=== PATIENT | female | born 1945 | race African-American/Black ===

== ENCOUNTER 2016-02-21 16:30 | Emergency (ER) | payer OTHER ==
[~2016-02-21] VITALS: Ht 170.2 cm; Wt 49.9 kg
[~2016-02-21 16:30] MED LIST: AMBIEN5 MG ORAL; IBUPROFEN600 MG ORAL; LORAZEPAM1 MG ORAL; NORCO 5-325 TA1 EACH ORAL; NORCO1 EA ORAL; PENICILLIN V P500 MG PO; SEROQUEL200 MG ORAL
[2016-02-21] MEDS ORDERED: IBUPROFEN600 MG ORAL (17:57)
[2016-02-21 18:10] VITALS: BP 128/76
--- NOTE | 2016-02-21 23:00 | Emergency Room Report ---
History of Present Illness General Chief Complaint: Lower Extremity Injury Source: Patient Present Illness HPI The patient is a 70-year-old female presenting with left ankle pain which began 1 month prior after twisting the ankle. The patient was seen in the emergency department at that time and diagnosed with ankle sprain. X-rays were unremarkable for fracture or dislocation. The patient states that she is experiencing a 3/10 ache to the ankle. The patient states that she has been able to walk normally but with pain. The patient denies numbness or tingling of the extremity Allergies: Coded Allergies: No Known Allergies (Unverified , 09/04/12) Patient History Past Medical History: see triage record Pertinent Family History: none Reviewed Nursing Documentation: PMH: Agreed, PSxH: Agreed Nursing Documentation-PMH Past Medical History: No Stated History Hx Cardiac Problems: No - INSOMNIA, tinnitus Hx Cancer: No Hx Neurological Problems: No Review of Systems All Other Systems: negative except mentioned in HPI Physical Exam Vital Signs Date Time Temp Pulse Resp B/P Pulse Ox O2 Delivery O2 Flow Rate FiO2 02/21/16 16:23 98.4 82 16 128/76 100 Room Air Sp02 EP Interpretation: reviewed, normal General Appearance: no apparent distress, alert, GCS 15, non-toxic Head: normocephalic, atraumatic Eyes: bilateral eye PERRL, bilateral eye normal inspection ENT: hearing grossly normal, normal pharynx, no angioedema, normal voice Neck: full range of motion, supple/symm/no masses Respiratory: chest non-tender, lungs clear, normal breath sounds, speaking full sentences Cardiovascular #1: regular rate, rhythm, no edema Cardiovascular #2: 2+ carotid (R), 2+ carotid (L), 2+ radial (R), 2+ radial (L) , 2+ dorsalis pedis (R), 2+ dorsalis pedis (L) Gastrointestinal: normal bowel sounds, non tender, soft, non-distended, no guarding, no rebound Rectal: deferred Genitourinary: normal inspection, no CVA tenderness Musculoskeletal: back normal, digits/nails normal, gait/station normal, normal range of motion, tender - TTP over anterior ankle Neurologic: alert, oriented x3, responsive, motor strength/tone normal, sensory intact, speech normal Psychiatric: judgement/insight normal, memory normal, mood/affect normal, no suicidal/homicidal ideation Reflexes: 3+ bicep (R), 3+ bicep (L), 3+ tricep (R), 3+ tricep (L), 3+ knee (R) , 3+ knee (L) Skin: normal color, no rash, warm/dry, well hydrated Lymphatic: no adenopathy Procedures Splinting Splinting : Consent: Verbal Location: L Ankle Pre-Made Type: MISHA wrap Pre-Proc Neuro Vasc Exam: normal Post-Proc Neuro Vasc Exam: normal Patient Tolerated: Well Complications: None Medical Decision Making PA Attestation Dr. Calero is my supervising physician. Patient management was discussed with my supervising physician Diagnostic Impression: Primary Impression: Ankle sprain ER Course The patient is a 70-year-old female presenting with left ankle pain which began 1 month prior after twisting the ankle. Ddx considered include but not limited to sprain/strain, fracture, contusion PE: Vitals WNL. NAD. L ankle: No edema. Full AROM. SILT. Cap refill < 3 seconds. No obvious deformity. TTP over anterior ankle. Pt given motrin for pain. Xray of ankle unremarkable. Pt placed in MISHA wrap and will be DC'ed home with motrin. ER precautions given Other X-Ray Diagnostic Results Other X-Ray Diagnostic Results : X-Ray Ordered: L ankle Date: Feb 21, 2016 Findings: no fractures, no dislocation, no soft tissue swelling Number of Views: 3 PA Scribe Text I am acting as scribe for my supervising physician. My supervising physician's interpretation of the L ankle xrays are there are no fractures, dislocations or soft tissue swelling. Last Vital Signs Date Time Temp Pulse Resp B/P Pulse Ox O2 Delivery O2 Flow Rate FiO2 02/21/16 18:10 98.5 65 16 128/76 100 Room Air Status: improved Disposition: HOME, SELF-CARE Condition: Improved Scripts Ibuprofen* (MOTRIN*) 600 Mg Tablet 600 MG ORAL Q8H Y for For Pain, #30 TAB 0 Refills Prov: BERNIE JETER 02/21/16 Referrals: [facility]ERR[facility] (PCP) Patient Instructions: Ankle Sprain Additional Instructions: I discussed my findings with the patient. All questions and concerns have been answered. Treatment and medication compliance have been addressed. I advised the patient that they need to follow up with PMD in 3-5 days. Return to ED if pain remains or worsens, numbness or tingling occurs, new rash is noticed, fever is noticed, or if needed for any reason. Patient verbalized understanding of discharge instructions. BERNIE JETER Feb 21, 2016 23:00
--- NOTE | 2016-02-22 11:37 | Diagnostic Imaging Report ---
Indication: Pain Comparison: None Findings: 3 views of the left ankle obtained. No acute fracture, malalignment, periostitis, or osteochondral defects are identified. Soft tissues are unremarkable. Impression: No acute findings
[2016-02-28] MEDS ORDERED: TRAZODONE HCL150 MG ORAL (20:36)
== END 2016-02-21 18:11 | disposition home or self-care (01) ==
LOC: EDBD 16:30 → EMR 16:40
DX: S93.402A Sprain of unspecified ligament of left ankle, initial encounter (principal); G47.00 Insomnia, unspecified; X58.XXXA Exposure to other specified factors, initial encounter; Y92.9 Unspecified place or not applicable; Y99.8 Other external cause status
CPT/HCPCS: 99283

== ENCOUNTER 2016-02-26 15:03 | Emergency (ER) | payer OTHER ==
[~2016-02-26] VITALS: Ht 170.2 cm; Wt 44.5 kg
[2016-02-26 15:27] VITALS: BP 119/70
[2016-02-26] MEDS ORDERED: CORTISPORIN EAR10 ML LEFT EAR ×2 (15:43→15:46)
[2016-02-26 15:58] VITALS: BP 119/70
--- NOTE | 2016-02-26 17:53 | Emergency Room Report ---
History of Present Illness General Chief Complaint: Earache Source: Patient (BERNIE JETER) Present Illness HPI The patient is a 70-year-old female presenting with left ear ringing and pain. The patient was seen by her ENT one week prior and diagnosed with cerumen impaction. The patient was discharged with prescription for debrox and has been using Q-tips. The pt states the pain is a 5/10 dull ache and does not radiate. Pain worse with chewing. No F, chills, MEADOWS, dizziness, blurred vision, CP, SOB (BERNIE JETER.AElli) Allergies: Coded Allergies: No Known Allergies (Unverified , 09/04/12) Patient History Past Medical History: see triage record Pertinent Family History: none Now: No Reviewed Nursing Documentation: PMH: Agreed, PSxH: Agreed (BERNIE JETER) Nursing Documentation-PMH Hx Cardiac Problems: No - INSOMNIA, tinnitus Hx Cancer: No Hx Neurological Problems: No (BERNIE JETER P.AElli) Review of Systems All Other Systems: negative except mentioned in HPI (BERNIE JETER P.AElli) Physical Exam Vital Signs Date Time Temp Pulse Resp B/P Pulse Ox O2 Delivery O2 Flow Rate FiO2 02/26/16 15:16 97.7 84 15 119/70 98 Room Air Sp02 EP Interpretation: reviewed, normal General Appearance: no apparent distress, alert, GCS 15, non-toxic Head: normocephalic, atraumatic Eyes: bilateral eye PERRL, bilateral eye normal inspection ENT: hearing grossly normal, normal pharynx, no angioedema, normal voice, uvula midline, moist mucus membranes, other - L ear: white DC and TTP with pressure over tragus Neck: full range of motion, supple/symm/no masses Respiratory: chest non-tender, lungs clear, normal breath sounds, no wheezing, speaking full sentences Musculoskeletal: back normal, gait/station normal, normal range of motion, non- tender Neurologic: alert, oriented x3, responsive, motor strength/tone normal, sensory intact, speech normal Psychiatric: judgement/insight normal, memory normal, mood/affect normal, no suicidal/homicidal ideation Skin: normal color, no rash, warm/dry, well hydrated (BERNIE JETER.Osiris) Medical Decision Making PA Attestation Dr. Winter is my supervising physician. Patient management was discussed with my supervising physician (BERNIE JETER) Medicare Attestation The history of Bella Kaye has been reviewed and management options for her have been examined and discussed by Darren Winter. I have personally examined and interviewed the patient. (DARREN WINTER M.D.) Diagnostic Impression: Primary Impression: Otitis externa of left ear ER Course The patient is a 70-year-old female presenting with left ear ringing and pain. Differential diagnosis include but not limited to otitis externa, otitis media, mastoiditis, tinnitus, sinusitis, pharyngitis PE: Vitals WNL. NAD. L ear: white DC and TTP with pressure over tragus. Otherwise HEENT exam unremarkable The patient will be discharged home with a prescription for Cortisporin and will continue to take the other prescribed medications as directed by ENT. Pt has appt with ENT in one week. ER precautions given (BERNIE JETER) Last Vital Signs Date Time Temp Pulse Resp B/P Pulse Ox O2 Delivery O2 Flow Rate FiO2 02/26/16 15:58 97.7 89 15 119/70 98 Room Air Status: improved (BERNIE JETER) Disposition: HOME, SELF-CARE Condition: Improved Scripts Neomycin/Polymyxin B Sulf/Hc* (CORTISPORIN EAR SOLUTION*) 10 Ml Solution 4 DROP LEFT EAR QID, #10 ML 0 Refills Prov: BERNIE JETER 02/26/16 Referrals: JAVIER SPICER (PCP) Patient Instructions: Otitis Externa Additional Instructions: I discussed my findings with the patient. All questions and concerns have been answered. Treatment and medication compliance have been addressed. I advised the patient that they need to follow up with PMD in 3-5 days. Return to ED if symptoms worsen, new symptoms arise, or if needed for any reason. Patient verbalized understanding of discharge instructions. Please follow up with ENT doctor as discussed BERNIE JETER Feb 26, 2016 17:53 DARREN WINTER M.D. Feb 27, 2016 20:44
[2016-02-28] MEDS ORDERED: TRAZODONE HCL150 MG ORAL (20:36)
== END 2016-02-26 15:58 | disposition home or self-care (01) ==
LOC: EMR 15:51
DX: H60.92 Unspecified otitis externa, left ear (principal)
CPT/HCPCS: 99282

== ENCOUNTER 2016-02-28 20:41 | Emergency (ER) | payer OTHER ==
[~2016-02-28] VITALS: Ht 170.2 cm; Wt 47.6 kg
[~2016-02-28 20:41] MED LIST changes: +CORTISPORIN EAR10 ML LEFT EAR; +TRAZODONE HCL150 MG ORAL
[2016-02-28 20:51] VITALS: BP 132/88
--- NOTE | 2016-02-28 21:24 | Emergency Room Report ---
History of Present Illness General Chief Complaint: Earache Source: Patient, EMS Present Illness HPI This patient presents with left ear symptoms. She was seen here for tinnitus on . She was given Cortisporin drops and has been using them. She had wax build up before that time. She reports hearing a cricket or hearing tuning fork in the ear. There is some pain there the lasts several (5) hours but then gets better without taking medications. She's not been taking other medicines for this. Denies any fevers, sore throat, cough, nausea, vomiting, diarrhea, dizziness. The patient does take Seroquel and also a medicine to help her sleep. She's been seen here for weight loss and insomnia in past. Tinnitus was noted in the past also. She's seen an hearing aid consultant recently and had some prescription to help with the wax. Allergies: Coded Allergies: No Known Allergies (Unverified , 09/04/12) Patient History Past Medical History: see triage record, psych hx Social History: Denies: alcohol use, drug use, smoking Social History Narrative at [facility] Reviewed Nursing Documentation: PMH: Agreed, PSxH: Agreed Nursing Documentation-PMH Past Medical History: No Stated History Hx Cardiac Problems: No - INSOMNIA, tinnitus Hx Cancer: No Hx Neurological Problems: No Review of Systems Constitutional: Denies: chills, fever Eye: Denies: blurred vision ENT: Reports: see HPI Respiratory: Reports: see HPI Cardiovascular: Denies: chest pain Gastrointestinal: Reports: see HPI Musculoskeletal: Denies: back pain Skin: Denies: rash Psychiatric: Reports: prior hx Neurological: Reports: see HPI Physical Exam Vital Signs Date Time Temp Pulse Resp B/P Pulse Ox O2 Delivery O2 Flow Rate FiO2 02/28/16 20:34 98.1 79 16 128/86 99 02/28/16 20:51 Room Air Sp02 EP Interpretation: reviewed, normal General Appearance: well appearing, no apparent distress Head: normocephalic, atraumatic Eyes: bilateral eye PERRL, bilateral eye normal inspection ENT: normal pharynx, normal voice, other - fluid L ear. No pinna tenderness. Hard to see TM. R ear canal with wax Neck: full range of motion, supple Respiratory: no respiratory distress, speaking full sentences Cardiovascular #2: 2+ radial (L) Musculoskeletal: gait/station normal, normal range of motion Neurologic: alert, normal gait, grossly normal Psychiatric: mood/affect normal - slight flat affect and tend to focus on sy relating them to "hallucinations" Skin: no rash Medical Decision Making Diagnostic Impression: Primary Impression: Left otitis media Qualified Codes: H66.92 - Otitis media, unspecified, left ear Additional Impressions: Tinnitus Qualified Codes: H93.12 - Tinnitus, left ear Presumed schizoaffective disorder ER Course Tinnitis and pain in L ear. Using drops now. No fever. Will treat for otitis media as well as otitis externa. Slight tendency towards somatization. Patient stable for outpatient observation and treatment. Last Vital Signs Date Time Temp Pulse Resp B/P Pulse Ox O2 Delivery O2 Flow Rate FiO2 02/28/16 20:51 98.1 82 17 132/88 99 Room Air Status: unchanged Disposition: HOME, SELF-CARE Condition: Stable Scripts Ibuprofen* (MOTRIN*) 600 Mg Tablet 600 MG ORAL Q6H Y for For Pain, #14 TAB Prov: Tam Lopez M.D. 02/28/16 Chlorpheniramine Maleate (CHLORPHENIRAMINE MALEATE) 4 Mg Tablet 4 MG ORAL Q6HR Y for tinnitis/congestion, #10 TAB 0 Refills Prov: Tam Lopez M.D. 02/28/16 Ciprofloxacin Hcl* (CIPROFLOXACIN HCL*) 500 Mg Tablet 500 MG ORAL EVERY 12 HOURS, #14 TAB 0 Refills Prov: Tam Lopez M.D. 02/28/16 Tam Lopez M.D. Feb 28, 2016 21:24
[2016-02-28] MEDS ORDERED: IBUPROFEN600 MG ORAL (21:26)
[2016-02-28] MEDS ORDERED: CHLORPHENIRAMINE4 MG ORAL (21:26)
[2016-02-28] MEDS ORDERED: CIPROFLOXACIN500 M2 ORAL (21:26)
[2016-02-28 21:48] VITALS: BP 132/88
== END 2016-02-28 21:50 | disposition home or self-care (01) ==
LOC: EDBD 20:41 → EMR 21:21
DX: H66.92 Otitis media, unspecified, left ear (principal); H93.12 Tinnitus, left ear
CPT/HCPCS: 99284

== ENCOUNTER 2016-03-08 14:40 | Emergency (ER) | payer OTHER ==
[~2016-03-08] VITALS: Ht 177.8 cm; Wt 49.9 kg
[~2016-03-08 14:40] MED LIST changes: +CHLORPHENIRAMINE4 MG ORAL; +CIPROFLOXACIN500 M2 ORAL
[2016-03-08 14:47] VITALS: BP 156/92
[2016-03-08 15:25] LABS: BASOPHILS % (AUTO) 0.7 % (0.0-2.0); EOSINOPHILS % (AUTO) 0.1 % (0.0-3.0); LYMPHOCYTES % (AUTO) 42.8 % (20.0-45.0); MEAN CORPUSCULAR HEMOGLOBIN 34.4 PG (27.0-31.0); MEAN CORPUSCULAR VOLUME 101 FL (80-99); MEAN PLATELET VOLUME 7.4 FL (6.5-10.1); MONOCYTES % (AUTO) 8.7 % (1.0-10.0); NEUTROPHILS % (AUTO) 47.7 % (45.0-75.0); PLATELET COUNT 120 K/UL (150-450); RED BLOOD COUNT 4.06 M/UL (4.20-5.40); RED CELL DISTRIBUTION WIDTH 11.8 % (11.6-14.8); WHITE BLOOD COUNT 4.9 K/UL (4.8-10.8)
[2016-03-08 15:38] LABS: ALANINE AMINOTRANSFERASE 22 U/L (3-33); ALBUMIN/GLOBULIN RATIO 1.5 (1.0-2.7); ANION GAP 17 (5-15); ASPARTATE AMINO TRANSFERASE 27 U/L (5-40); CALCIUM 9.1 mg/dL (8.6-10.2); CARBON DIOXIDE 26 mEQ/L (20-30); CHLORIDE 98 mEQ/L (98-107); CREATININE 0.6 mg/dL (0.5-0.9); GLOMERULAR FILTRATION RATE > 60 mL/min (>60); HEMOLYSIS 35; POTASSIUM 3.9 mEQ/L (3.4-4.9); SODIUM 141 mEQ/L (135-145); TOTAL PROTEIN 7.1 g/dL (6.6-8.7)
[2016-03-08 16:18] VITALS: BP 141/80
[2016-03-08 16:20] VITALS: BP 156/92
--- NOTE | 2016-03-08 22:22 | Emergency Room Report ---
History of Present Illness General Chief Complaint: General Complaint Present Illness HPI The patient is a 70-year-old female presenting for weight loss. The patient states that she has lost 20 pounds in the last month. When asked, the patient does admit to eating less than usual. The patient states that she had a tomato for breakfast today and nothing else. The patient denies any other symptoms including pain, nausea, vomiting, diarrhea, constipation, night sweats, cough (BERNIE JETER P.A.) Allergies: Coded Allergies: No Known Allergies (Unverified , 09/04/12) Patient History Past Medical History: see triage record Pertinent Family History: none Reviewed Nursing Documentation: PMH: Agreed, PSxH: Agreed (BERNIE JETER P.A.) Nursing Documentation-PMH Hx Cardiac Problems: No - INSOMNIA, tinnitus Hx Cancer: No History Of Psychiatric Problem: Yes - SCHEZOPHERINIA Hx Neurological Problems: No (BERNIE JETER P.A.) Review of Systems All Other Systems: negative except mentioned in HPI (BERNIE JETER P.A.) Physical Exam Vital Signs Date Time Temp Pulse Resp B/P Pulse Ox O2 Delivery O2 Flow Rate FiO2 03/08/16 14:42 97.3 95 18 156/92 100 Room Air Sp02 EP Interpretation: reviewed, normal General Appearance: no apparent distress, alert, GCS 15, non-toxic Head: normocephalic, atraumatic Eyes: bilateral eye PERRL, bilateral eye normal inspection ENT: hearing grossly normal, normal pharynx, no angioedema, normal voice Neck: full range of motion, supple/symm/no masses Respiratory: chest non-tender, lungs clear, normal breath sounds, speaking full sentences Cardiovascular #1: regular rate, rhythm, no edema Cardiovascular #2: 2+ carotid (R), 2+ carotid (L), 2+ radial (R), 2+ radial (L) , 2+ dorsalis pedis (R), 2+ dorsalis pedis (L) Gastrointestinal: normal bowel sounds, non tender, soft, non-distended, no guarding, no rebound Rectal: deferred Genitourinary: normal inspection, no CVA tenderness Musculoskeletal: back normal, gait/station normal, normal range of motion, non- tender Neurologic: alert, oriented x3, responsive, motor strength/tone normal, sensory intact, speech normal Psychiatric: judgement/insight normal, memory normal, mood/affect normal, no suicidal/homicidal ideation Reflexes: 3+ bicep (R), 3+ bicep (L), 3+ tricep (R), 3+ tricep (L), 3+ knee (R) , 3+ knee (L) Skin: normal color, no rash, warm/dry, well hydrated Lymphatic: no adenopathy (BERNIE JETER) Medical Decision Making PA Attestation Dr. Winter is my supervising physician. Patient management was discussed with my supervising physician (BERNIE JETER) Medicare Attestation The history of Bella Kaye has been reviewed and management options for her have been examined and discussed by Darren Winter. I have personally examined and interviewed the patient. (DARREN WINTER M.D.) Diagnostic Impression: Primary Impression: Protein calorie malnutrition ER Course The patient is a 70-year-old female presenting for weight loss. Differential diagnoses considered: Malnutrition, gastroenteritis, depression PE: Vitals WNL. NAD. Abdomen: Normal appearance. Non distended. No ecchymosis. Normal BS. Non TTP. No McBurney point tenderness. No guarding. No CVA tenderness Labs: CBC and CMP both unremarkable. The patient was given IV fluids. The patient is given instructions to increase caloric intake. ER precautions are given and the patient will follow up with primary care doctor. Laboratory Tests Test 03/08/16 15:00 White Blood Count 4.9 K/UL (4.8-10.8) Red Blood Count 4.06 M/UL (4.20-5.40) L Hemoglobin 14.0 G/DL (12.0-16.0) Hematocrit 41.0 % (37.0-47.0) Mean Corpuscular Volume 101 FL (80-99) H Mean Corpuscular Hemoglobin 34.4 PG (27.0-31.0) H Mean Corpuscular Hemoglobin Concent 34.0 G/DL (32.0-36.0) Red Cell Distribution Width 11.8 % (11.6-14.8) Platelet Count 120 K/UL (150-450) L Mean Platelet Volume 7.4 FL (6.5-10.1) Neutrophils (%) (Auto) 47.7 % (45.0-75.0) Lymphocytes (%) (Auto) 42.8 % (20.0-45.0) Monocytes (%) (Auto) 8.7 % (1.0-10.0) Eosinophils (%) (Auto) 0.1 % (0.0-3.0) Basophils (%) (Auto) 0.7 % (0.0-2.0) Sodium Level 141 mEQ/L (135-145) Potassium Level 3.9 mEQ/L (3.4-4.9) Chloride Level 98 mEQ/L (98-107) Carbon Dioxide Level 26 mEQ/L (20-30) Anion Gap 17 (5-15) H Blood Urea Nitrogen 18 mg/dL (7-23) Creatinine 0.6 mg/dL (0.5-0.9) Estimate Glomerular Filtration Rate > 60 mL/min (>60) Glucose Level 102 mg/dL (74-106) Calcium Level 9.1 mg/dL (8.6-10.2) Total Bilirubin 0.2 mg/dL (0.0-1.2) Aspartate Amino Transferase (AST) 27 U/L (5-40) Alanine Aminotransferase (ALT) 22 U/L (3-33) Alkaline Phosphatase 42 U/L (35-104) Total Protein 7.1 g/dL (6.6-8.7) Albumin 4.3 g/dL (3.5-5.2) Globulin 2.8 g/dL Albumin/Globulin Ratio 1.5 (1.0-2.7) Lab Results Impression CBC and CMP are unremarkable (BERNIE JETER P.A.) Last Vital Signs Date Time Temp Pulse Resp B/P Pulse Ox O2 Delivery O2 Flow Rate FiO2 03/08/16 16:20 97.3 78 18 156/92 100 Room Air Status: improved (BERNIE JETER P.A.) Disposition: HOME, SELF-CARE Condition: Improved Referrals: JAVIER SPICER (PCP) Patient Instructions: Malnutrition Additional Instructions: I discussed my findings with the patient. All questions and concerns have been answered. Treatment and medication compliance have been addressed. I advised the patient that they need to follow up with PMD in 3-5 days. Return to ED if symptoms worsen, new symptoms arise, or if needed for any reason. Patient verbalized understanding of discharge instructions. BERNIE JETER Mar 08, 2016 22:22 DARREN WINTER M.D. Mar 15, 2016 07:08
== END 2016-03-08 16:21 | disposition home or self-care (01) ==
LOC: EDBD 14:40 → EMR 15:12
DX: E46 Unspecified protein-calorie malnutrition (principal); Z68.1 Body mass index [BMI] 19.9 or less, adult; G47.00 Insomnia, unspecified; F20.9 Schizophrenia, unspecified
CPT/HCPCS: 36415; 80053; 85025; 96374

== ENCOUNTER 2016-03-21 17:12 | Emergency (ER) | payer OTHER ==
[~2016-03-21] VITALS: Ht 170.2 cm; Wt 46.3 kg
[2016-03-21 18:00] VITALS: BP 132/67
[2016-03-21] MEDS ORDERED: BACITRACIN15 GM TOPIC (18:11)
[2016-03-21] MEDS ORDERED: HYDROCORTISON28.4 G5 TP (18:11)
[2016-03-21 18:15] VITALS: BP 132/67
--- NOTE | 2016-03-21 22:20 | Emergency Room Report ---
History of Present Illness General Chief Complaint: Pain Source: Patient Present Illness HPI The patient is a 70-year-old female presenting with bilateral lower leg itching. The patient states that she believes is due to insects. Patient has denied seeing any insects. The patient denies any pain and denies swelling. Pt denies itching to any other part of body. Pt denies N, V, F, chills, cough, SOB, CP Allergies: Coded Allergies: No Known Allergies (Unverified , 09/04/12) Patient History Past Medical History: see triage record Pertinent Family History: none Now: No Reviewed Nursing Documentation: PMH: Agreed, PSxH: Agreed Nursing Documentation-PMH Past Medical History: No History, Except For Hx Cardiac Problems: No - INSOMNIA, tinnitus Hx Cancer: No Hx Neurological Problems: No Review of Systems All Other Systems: negative except mentioned in HPI Physical Exam Vital Signs Date Time Temp Pulse Resp B/P Pulse Ox O2 Delivery O2 Flow Rate FiO2 03/21/16 17:34 97.9 89 16 132/67 98 Room Air Sp02 EP Interpretation: reviewed, normal General Appearance: no apparent distress, alert, GCS 15, non-toxic Head: normocephalic, atraumatic Eyes: bilateral eye PERRL, bilateral eye normal inspection Musculoskeletal: back normal, gait/station normal, normal range of motion, non- tender, no calf tenderness Neurologic: alert, oriented x3, responsive, motor strength/tone normal, sensory intact, normal gait, speech normal Psychiatric: judgement/insight normal, memory normal, mood/affect normal, no suicidal/homicidal ideation Skin: well hydrated, normal turgor, other - anterior lower legs 1cm circular erythematous macules with central punctate. No fluctuance. No DC, abrasions - excoriations to anterior bilat lower legs Lymphatic: no adenopathy Medical Decision Making PA Attestation Dr. Calero is my supervising physician. Patient management was discussed with my supervising physician Diagnostic Impression: Primary Impression: Insect bite ER Course The patient is a 70-year-old female presenting with bilateral lower leg itching. Ddx considered include but not limited to insect bite, contact dermatitis, eczema, cellulitis PE: vitals WNL. NAD bilat anterior lower legs 1cm circular erythematous macules with central punctate. No fluctuance. No DC. No burrowing. No other lesions of the skin. The patient be treated with 1% hydrocortisone cream and also bacitracin for the excoriations. The patient will this area clean and dry. ER precautions are given Last Vital Signs Date Time Temp Pulse Resp B/P Pulse Ox O2 Delivery O2 Flow Rate FiO2 03/21/16 17:34 97.9 89 16 132/67 98 Room Air Status: improved Disposition: HOME, SELF-CARE Condition: Improved Scripts Bacitracin (Bacitracin) 28.4 Gm Oint...g. 1 APPLIC TOPIC THREE TIMES A DAY, #28 GM Prov: BERNIE JETER 03/21/16 Hydrocortisone 1% cream (Hydrocortisone 1% cream) Y Cr 28.4 GM TP Q12HR, #28 GM Prov: BERNIE JETER 03/21/16 Referrals: [facility],REFERR[facility] (PCP) Patient Instructions: Insect Bite Additional Instructions: I discussed my findings with the patient. All questions and concerns have been answered. Treatment and medication compliance have been addressed. I advised the patient that they need to follow up with PMD in 3-5 days. Return to ED if symptoms worsen, new symptoms arise, or if needed for any reason. Patient verbalized understanding of discharge instructions. BERNIE JETER Mar 21, 2016 22:20
== END 2016-03-21 18:15 | disposition home or self-care (01) ==
LOC: EMR 18:11
DX: S80.862A Insect bite (nonvenomous), left lower leg, initial encounter (principal); S80.861A Insect bite (nonvenomous), right lower leg, initial encounter; W57.XXXA Bitten or stung by nonvenomous insect and other nonvenomous arthropods, initial encounter; Y92.9 Unspecified place or not applicable; G47.00 Insomnia, unspecified
CPT/HCPCS: 99284

== ENCOUNTER 2016-04-29 15:08 | Emergency (ER) | payer OTHER ==
[~2016-04-29] VITALS: Ht 170.2 cm; Wt 47.2 kg
[~2016-04-29 15:08] MED LIST changes: +BACITRACIN15 GM TOPIC; +HYDROCORTISON28.4 G5 TP
[2016-04-29 15:23] VITALS: BP 133/74
--- NOTE | 2016-04-29 16:07 | Emergency Room Report ---
History of Present Illness General Chief Complaint: General Complaint Source: Patient Present Illness HPI 70 y/o female c/o ringing in the left ear for 7 year. States she has been worked up for it by neurology and ENT and currently being managed by them. States for the past 4 days she had no tinnitus after having her left ear cerumen impaction removed until last night / this morning when it returned. Patient is asking if there is anything she can do at home to help with her ear ringing. Allergies: Coded Allergies: No Known Allergies (Unverified , 09/04/12) Patient History Pertinent Family History: none Now: No Reviewed Nursing Documentation: PMH: Agreed, PSxH: Agreed Nursing Documentation-PMH Past Medical History: No History, Except For Hx Cardiac Problems: No - INSOMNIA, tinnitus Hx Cancer: No Hx Neurological Problems: No Review of Systems All Other Systems: negative except mentioned in HPI Physical Exam Vital Signs Date Time Temp Pulse Resp B/P Pulse Ox O2 Delivery O2 Flow Rate FiO2 04/29/16 15:16 97.9 80 16 133/74 100 Room Air Sp02 EP Interpretation: reviewed, normal General Appearance: no apparent distress, alert, GCS 15, non-toxic Head: normocephalic, atraumatic Eyes: bilateral eye PERRL, bilateral eye normal inspection ENT: hearing grossly normal, normal pharynx, no angioedema, normal voice Neck: full range of motion, supple/symm/no masses Respiratory: chest non-tender, lungs clear, normal breath sounds, speaking full sentences Cardiovascular #1: regular rate, rhythm, no edema Neurologic: alert, oriented x3, responsive, motor strength/tone normal, sensory intact, speech normal Psychiatric: judgement/insight normal, memory normal, mood/affect normal, no suicidal/homicidal ideation Skin: normal color, no rash, warm/dry, well hydrated Lymphatic: no adenopathy Medical Decision Making PA Attestation Dr. Rendon is my supervising physician with whom patient management has been discussed with. Diagnostic Impression: Primary Impression: Tinnitus Qualified Codes: H93.12 - Tinnitus, left ear ER Course Pt. presents to the ED c/o tinnitus Ddx considered but are not limited to AOM, tinnitus, cerumen impaction, seasonal allergies Vital signs: are WNL, pt. is afebrile H&PE are most consistent with tinnitus ORDERS: none required at this time, the diagnosis is clinical ED INTERVENTIONS: none required at this time. DISCHARGE: At this time pt. is stable for d/c to home. Will provide printed patient care instructions, and any necessary prescriptions. Care plan and follow up instructions have been discussed with the patient prior to discharge. Last Vital Signs Date Time Temp Pulse Resp B/P Pulse Ox O2 Delivery O2 Flow Rate FiO2 04/29/16 15:23 97.9 80 16 133/74 100 Room Air Disposition: HOME, SELF-CARE Condition: Stable Scripts Meclizine Hcl* (MECLIZINE*) 25 Mg Tablet 25 MG ORAL THREE TIMES A DAY for 10 Days, #30 TAB Prov: DOMINIQUE MICHAEL 04/29/16 Acetic Acid (ACETIC ACID) 15 Ml Solution 3 DROP LEFT EAR FOUR TIMES A DAY for 10 Days, #1 UNIT Prov: DOMINIQUE MICHAEL 04/29/16 Patient Instructions: Tinnitus Additional Instructions: Tinnitus is often caused by damage to cells in a part of the inner ear. When these cells are damaged, they send signals to the brain that make you think you are hearing things that are not really there. The damage that leads to tinnitus can be caused by: Normal aging and hearing loss, Loud noise, Medicines, including some antibiotics, anti-seizure medicines, and painkillers, Head or neck injuries, or Certain diseases. The management of tinnitus involves treating any underlying disorders or abnormalities as well as addressing the tinnitus itself. Although there is no cure for most cases of chronic tinnitus, there are ways to manage the condition. The impact of tinnitus on everyday life varies, often depending upon the severity of the tinnitus noise. About 25 percent of sufferers report an increase in tinnitus severity over time. Long- term tinnitus is unlikely to go away completely. However, it often becomes less bothersome over time, especially when hearing loss is also present. DOMINIQUE MICHAEL Apr 29, 2016 16:07
[2016-04-29] MEDS ORDERED: ACETIC ACID15 ML LEFT EAR (16:09)
[2016-04-29] MEDS ORDERED: MECLIZINE HCL25 MG ORAL (16:09)
[2016-04-29 16:22] VITALS: BP 133/74
== END 2016-04-29 16:22 | disposition home or self-care (01) ==
LOC: EMR 15:55
DX: H93.12 Tinnitus, left ear (principal)
CPT/HCPCS: 99284

== ENCOUNTER 2016-05-01 19:53 | Emergency (ER) | payer OTHER ==
[~2016-05-01] VITALS: Ht 170.2 cm; Wt 46.7 kg
[~2016-05-01 19:53] MED LIST changes: +ACETIC ACID15 ML LEFT EAR; +MECLIZINE HCL25 MG ORAL
[2016-05-01 20:13] VITALS: BP 129/86
--- NOTE | 2016-05-01 20:36 | Emergency Room Report ---
History of Present Illness General Chief Complaint: General Complaint Source: Patient Present Illness HPI Patient is here for evaluation of forgetfulness for 4 months. Patient states that lately she has been creating things that she normally remembers. Examples of the patient sites are forgetting to staff members at [facility] and remembers only two jokes out of 4 that she normally tells. Patient states that she was here 2 days ago for tinnitus and was given treatment with acetic acid and antihistamine which the patient has taken with good compliance and resolving diverticulitis. 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 Denies any current n/v/f, ALOC, blurred vision, vision loss, floaters , neck pain, photophobia, phonophobia, numbness, paralysis, CP, SOB or headache. Allergies: Coded Allergies: No Known Allergies (Unverified , 09/04/12) Patient History Past Medical History: see triage record Pertinent Family History: none Now: No Reviewed Nursing Documentation: PMH: Agreed, PSxH: Agreed Nursing Documentation-PMH Past Medical History: No History, Except For Hx Cardiac Problems: No - INSOMNIA, tinnitus Hx Cancer: No Hx Neurological Problems: No Review of Systems All Other Systems: negative except mentioned in HPI Physical Exam Vital Signs Date Time Temp Pulse Resp B/P Pulse Ox O2 Delivery O2 Flow Rate FiO2 05/01/16 20:03 98.1 86 16 129/86 100 Room Air Sp02 EP Interpretation: reviewed, normal General Appearance: no apparent distress, alert, GCS 15, non-toxic Head: normocephalic, atraumatic Eyes: bilateral eye PERRL, bilateral eye normal inspection ENT: hearing grossly normal, normal pharynx, no angioedema, normal voice Neck: full range of motion, supple/symm/no masses Respiratory: chest non-tender, lungs clear, normal breath sounds, speaking full sentences Cardiovascular #1: regular rate, rhythm, no edema Cardiovascular #2: 2+ carotid (R), 2+ carotid (L), 2+ radial (R), 2+ radial (L) Musculoskeletal: back normal, gait/station normal, normal range of motion, non- tender Neurologic: alert, oriented x3, responsive, cigarette stamper III-XII nml as tested, motor strength/tone normal, DTRs symmetric, sensory intact, cerebellar normal, normal gait, speech normal, no Babinski, no pronator, other - MMSE score 30 Psychiatric: judgement/insight normal, memory normal, mood/affect normal, no suicidal/homicidal ideation, no delusions Skin: normal color, no rash, warm/dry, well hydrated Lymphatic: no adenopathy Medical Decision Making PA Attestation Dr. Calero is my supervising physician with whom patient management has been discussed with. Diagnostic Impression: Primary Impression: Forgetfulness ER Course Pt. presents to the ED c/o evaluation of possible Alzheimer / dementia evaluation. Ddx considered but are not limited to Alz/Dementia, CVA, forgetfulness, ALOC Vital signs: are WNL, pt. is afebrile H&PE are most consistent with Forgetfulness with normal MMSE (score of 30) ORDERS: none required at this time, the diagnosis is clinical ED INTERVENTIONS: none required at this time. DISCHARGE: At this time pt. is stable for d/c to home. Advised to follow up for further workup with PCP. Will provide printed patient care instructions, and any necessary prescriptions. Care plan and follow up instructions have been discussed with the patient prior to discharge. Last Vital Signs Date Time Temp Pulse Resp B/P Pulse Ox O2 Delivery O2 Flow Rate FiO2 05/01/16 20:13 98.1 84 16 129/86 100 Room Air Status: unchanged Disposition: HOME, SELF-CARE Condition: Stable Referrals: [facility]ERR[facility] (PCP) Patient Instructions: Alzheimer Disease Additional Instructions: Patient advised to follow up with PCP for further evaluation of symptoms. Advised patient to go to ER if patient experiences new or severe headache, temperature greater than 100.4F (38C), seeing double or having trouble seeing clearly, trouble speaking or hearing, weakness in an arm or leg, an inability to walk without assistance, passing out, numbness or tingling, chest pain, or vomiting that will not stop. DOMINIQUE MICHAEL May 01, 2016 20:35
[2016-05-01 20:49] VITALS: BP 129/86
== END 2016-05-01 20:49 | disposition home or self-care (01) ==
LOC: EMR 20:25
DX: R41.3 Other amnesia (principal); G47.00 Insomnia, unspecified; K57.90 Diverticulosis of intestine, part unspecified, without perforation or abscess without bleeding
CPT/HCPCS: 99282

== ENCOUNTER 2016-05-08 18:04 | Emergency (ER) | payer OTHER ==
[~2016-05-08] VITALS: Ht 170.2 cm; Wt 46.7 kg
[2016-05-08 18:38] VITALS: BP 110/65
--- NOTE | 2016-05-08 19:09 | Emergency Room Report ---
History of Present Illness General Chief Complaint: General Complaint Source: Patient Present Illness HPI 71 YO Female presents to the ED c/o Continued in ability to put on weight despite following food recommendations from previous ED visit for malnutrition. Pt reports continued intermittent tinnitus as well, states she was evaluated by ENT and they told her that it is because of age, and there is nothing that can be done. Pt denies imbalance, dizziness, changes in hearing, Patient denies night sweats, nausea, vomiting, abdominal pain, hematuria, dysuria, frequency, fevers or chills. She denies recent head trauma or fall. She denies history of neoplastic disease. Patient states that she was recommended to eat cupcakes and rice at previous ED visits to increase caloric intake. Patient states she does not like cupcakes and states his sugar makes her tinnitus worse , pt is requesting alternative diet suggestions. pt. reports intermittent back aches, denies pain at this time. Denies CP, Palpitations, LOC, AMS, dizziness, Changes in Vision, Sensation, paresthesias, or a sudden severe headache. Allergies: Coded Allergies: No Known Allergies (Unverified , 09/04/12) Patient History Past Medical History: see triage record Past Surgical History: none Pertinent Family History: none Now: No Immunizations: UTD Reviewed Nursing Documentation: PMH: Agreed, PSxH: Agreed Nursing Documentation-PMH Hx Cardiac Problems: No - INSOMNIA, tinnitus Hx Cancer: No Hx Neurological Problems: No Review of Systems All Other Systems: negative except mentioned in HPI Physical Exam Vital Signs Date Time Temp Pulse Resp B/P Pulse Ox O2 Delivery O2 Flow Rate FiO2 05/08/16 18:17 97.5 83 14 108/62 100 Room Air Sp02 EP Interpretation: reviewed, normal General Appearance: no apparent distress, alert, GCS 15, non-toxic, thin Head: normocephalic, atraumatic Eyes: bilateral eye PERRL, bilateral eye normal inspection ENT: hearing grossly normal, normal pharynx, no angioedema, normal voice, TMs + canals normal Neck: full range of motion, no meningismus, no bony tend, supple/symm/no masses Respiratory: lungs clear, normal breath sounds, speaking full sentences Cardiovascular #1: regular rate, rhythm, no edema Gastrointestinal: normal bowel sounds, non tender, soft, non-distended, no guarding, no rebound Rectal: deferred Genitourinary: normal inspection, no CVA tenderness Musculoskeletal: back normal, gait/station normal, normal range of motion, non- tender Neurologic: alert, oriented x3, responsive, motor strength/tone normal, sensory intact, cerebellar normal, normal gait, speech normal, other - negative godoy's, equal waste and batting waste chopper strength Psychiatric: judgement/insight normal, memory normal, mood/affect normal, no suicidal/homicidal ideation Skin: normal color, no rash, warm/dry, well hydrated Medical Decision Making PA Attestation is my supervising Physician whom patient management has been discussed with. Diagnostic Impression: Primary Impression: Malnutrition Additional Impression: chronic tinnitus ER Course Pt. presents to the ED c/o Continued in ability to put on weight despite following food recommendations from previous ED visit for malnutrition. Pt reports continued intermittent tinnitus as well, states she was evaluated multiple times by ENT specialist and they told her that it is because of age, and there is nothing that can be done. -Pt requests alternative diet recommendations. Ddx considered but are not limited to Malnutrition, malignancy, non-compliance with follow up, GE, malabsorption * I have reviewed this patients previous ED visits she frequented the ED twice this month with same cc, and consistently each month prior. previous laboratory work-ups were unremarkable. Vital signs: are WNL, pt. is afebrile H&PE are most consistent with need for increased caloric intake, no evidence of dehydration or failure to thrive, pt. is alert, and NAD. no constitutional symptoms to suggest malignancy or warrant imaging at this time. ORDERS: none required at this time, the diagnosis is clinical ED INTERVENTIONS: None required at this time. -d/w pt. proper follow up with Jewel Staker, and her PCP, also recommended continued follow up for her tinnitus with ENT specialist with any change in her ear symptoms. -D/W pt that I will give her Rx for Ensure to be consumed TID. I do not suspect an emergent condition at this time. with current presentation pt. is stable for close outpatient follow up. d/w pt that her previous ED evaluations for malnutrition where limited, and that it is very important to follow up with her PCP and a Jewel Staker for more in depth evaluations. - Pt. also given list of free/reduced cost health clinics for follow up in case her PCP is not easily available. DISCHARGE: At this time pt. is stable for d/c to home. Will provide printed patient care instructions, and any necessary prescriptions. Care plan and follow up instructions have been discussed with the patient prior to discharge. Last Vital Signs Date Time Temp Pulse Resp B/P Pulse Ox O2 Delivery O2 Flow Rate FiO2 05/08/16 18:38 97.9 78 16 110/65 98 Room Air Disposition: HOME, SELF-CARE Condition: Stable Scripts Lactose-Reduced Food (Ensure Active Muscle Health) 237 Ml Liquid 237 ML PO TID for 30 Days, ML Prov: Aydee Michele 05/08/16 Referrals: [facility],REFERR[facility] (PCP) Patient Instructions: Heart-Healthy Eating Plan, [id number], Malnutrition Additional Instructions: Take medications as directed. Follow up with PCP in 3-5 days Follow up with Jewel Staker Follow up with ENT Specialist Return sooner to ED if new symptoms occur, or current symptoms become worse. - Please note that this Emergency Department Report was dictated using [email or web address] making technician technology software, occasionally this can lead to erroneous entry secondary to interpretation by the dictation equipment. Aydee Michele May 08, 2016 19:09
[2016-05-08] MEDS ORDERED: ENSURE ACTIVE237 M1 PO (19:11)
[2016-05-08 19:27] VITALS: BP 110/65
== END 2016-05-08 19:29 | disposition home or self-care (01) ==
LOC: EMR 18:58
DX: E46 Unspecified protein-calorie malnutrition (principal); H93.19 Tinnitus, unspecified ear; M54.9 Dorsalgia, unspecified; G47.00 Insomnia, unspecified
CPT/HCPCS: 99283

== ENCOUNTER 2017-01-06 10:47 | Emergency (ER) | payer MEDICARE, MEDICAID ==
[~2017-01-06] VITALS: Ht 170.2 cm; Wt 48.1 kg
[~2017-01-06 10:47] MED LIST changes: +ENSURE ACTIVE237 M1 PO
[2017-01-06] MEDS ORDERED: TRIAMCINOLONE A15 GM TP (11:05)
[2017-01-06] MEDS ORDERED: KENALOG 0.025%15 GM APPLIC (11:31)
[2017-01-06] MEDS ORDERED: PERMETHRIN60 GM TOPIC (11:31)
[2017-01-06 11:36] VITALS: BP 120/72
[2017-01-06 11:54] VITALS: BP 120/72
--- NOTE | 2017-01-07 14:24 | Emergency Room Report ---
History of Present Illness General Chief Complaint: General Complaint Source: Patient Present Illness HPI Patient is a 71-year-old female presented after increased rash. Patient was noted to have increased itching areas to her the wrist as well as her neck and the upper extremity. The patient presented used some 100% cream with some relief. Patient reports having some insect bites which occurred at home. The patient denies recent travel. She had not been having any fever. She denies any pain. She had not been having any diarrhea or bloody stool. She denied weight loss. Allergies: Coded Allergies: No Known Allergies (Unverified , 09/04/12) Patient History Past Medical History: see triage record Last Menstrual Period: Post Reviewed Nursing Documentation: PMH: Agreed, PSxH: Agreed Nursing Documentation-PMH Hx Cardiac Problems: No - INSOMNIA, tinnitus Hx Asthma: Yes Hx Cancer: No Hx Neurological Problems: No Review of Systems All Other Systems: negative except mentioned in HPI Physical Exam Vital Signs Date Time Temp Pulse Resp B/P (MAP) Pulse Ox O2 Delivery O2 Flow Rate FiO2 01/06/17 10:56 98.2 75 17 120/72 98 Room Air General Appearance: well appearing, no apparent distress, GCS 15, thin, Chronically Ill Head: normocephalic, atraumatic ENT: hearing grossly normal, normal voice Neck: full range of motion, supple Respiratory: no respiratory distress, speaking full sentences Musculoskeletal: no calf tenderness Neurologic: normal inspection, alert, oriented x3, responsive, normal gait Psychiatric: mood/affect normal Skin: other - papular rash to extremities Medical Decision Making Diagnostic Impression: Primary Impression: Insect bite ER Course Patient presented for skin rash. Differential diagnosis included was not limited to insect bite, Camarena-Freddie syndrome, urticaria, erythema multiforme , contact dermatitis. Patient's benign exam and does not appear to require any further imaging or laboratory testing at this time. Patient's benign exam and does not appear to require any further imaging or laboratory testing at this time. The patient appears have insect bites. She is was given prescription for permethrin cream as well as hydrocortisone cream. The patient was advised to followup with primary care physician for reexamination. Patient is advised to return if she began having worsening rash high fever or or other concerns. Last Vital Signs Date Time Temp Pulse Resp B/P (MAP) Pulse Ox O2 Delivery O2 Flow Rate FiO2 01/06/17 11:54 98.2 17 120/72 98 Room Air 01/06/17 10:56 75 Status: improved Disposition: HOME, SELF-CARE Condition: Stable Scripts Permethrin* (ELIMITE*) 60 Gm Cream..g. 1 APPLIC TOPIC ONCE, #1 TUBE 0 Refills Apply cream from head to toe; leave on for 8-14 hours before washing off with water Prov: Virgil Calero 01/06/17 Triamcinolone Acet (Triamcinolone Acetonide) 15 Gm Cream..g. 15 GM APPLIC DAILY, #15 GM Prov: Virgil Calero 01/06/17 Referrals: NON PHYSICIAN (PCP) Patient Instructions: Insect Bite Virgil Calero Jan 07, 2017 14:24
== END 2017-01-06 11:57 | disposition home or self-care (01) ==
LOC: EMR 11:30
DX: S60.869A Insect bite (nonvenomous) of unspecified wrist, initial encounter (principal); S10.96XA Insect bite of unspecified part of neck, initial encounter; W57.XXXA Bitten or stung by nonvenomous insect and other nonvenomous arthropods, initial encounter; Y92.9 Unspecified place or not applicable; R21 Rash and other nonspecific skin eruption; J45.909 Unspecified asthma, uncomplicated
CPT/HCPCS: 99284

== ENCOUNTER 2017-01-08 15:15 | Emergency (ER) | payer MEDICARE, MEDICAID ==
[~2017-01-08] VITALS: Ht 170.2 cm; Wt 48.1 kg
[~2017-01-08 15:15] MED LIST changes: +KENALOG 0.025%15 GM APPLIC; +PERMETHRIN60 GM TOPIC; +TRIAMCINOLONE A15 GM TP
[2017-01-08] MEDS ORDERED: MECLIZINE HCL12.5 MG ORAL (15:45)
[2017-01-08 16:05] VITALS: BP 110/63
--- NOTE | 2017-01-08 21:38 | Emergency Room Report ---
History of Present Illness General Chief Complaint: General Complaint Present Illness HPI 71-year-old female presents to the emergency department complaining of his a noise in the left ear times one day. Patient states that she was evaluated by ENT specialist yesterday she was not having a problem at the time. Patient does have a history of tinnitus and has been evaluated by neurology as well as several ENT specialist. Patient states that the ENT specialist that she saw yesterday recommended that she may need a hearing aid to cancel out the hissing noise that she keeps hearing. Patient also presents with her recent tearing examination showing diagnosis of sensorial hearing loss. She denies pain at this time she denies dizziness, recent trauma or fall or changes in vision. Denies ear tenderness, d/c or q-tip use. Patient denies nausea, vomiting. Denies CP, Palpitations, LOC, AMS, dizziness, Changes in Vision, Sensation, paresthesias, or a sudden severe headache. (Aydee Michele P.A.) Allergies: Coded Allergies: No Known Allergies (Unverified , 09/04/12) Patient History Past Medical History: see triage record Past Surgical History: none Pertinent Family History: none Reviewed Nursing Documentation: PMH: Agreed, PSxH: Agreed (Aydee Michele P.A.) Nursing Documentation-PMH Hx Cardiac Problems: No - INSOMNIA, tinnitus Hx Asthma: Yes Hx Cancer: No Hx Neurological Problems: No (Aydee Michele P.A.) Review of Systems All Other Systems: negative except mentioned in HPI (Aydee Michele P.A.) Physical Exam Vital Signs Date Time Temp Pulse Resp B/P (MAP) Pulse Ox O2 Delivery O2 Flow Rate FiO2 01/08/17 15:22 97.5 75 20 111/68 99 Room Air Sp02 EP Interpretation: reviewed, normal General Appearance: no apparent distress, alert, GCS 15, non-toxic Head: normocephalic, atraumatic Eyes: bilateral eye normal inspection, bilateral eye PERRL, bilateral eye EOMI ENT: hearing grossly normal, normal pharynx, no angioedema, normal voice, TMs + canals normal, uvula midline, moist mucus membranes Neck: full range of motion, no meningismus, no bony tend, supple/symm/no masses Respiratory: lungs clear, normal breath sounds, speaking full sentences Cardiovascular #1: regular rate, rhythm Musculoskeletal: back normal, gait/station normal, normal range of motion, non- tender Neurologic: alert, oriented x3, responsive, motor strength/tone normal, sensory intact, normal gait, speech normal, no pronator, other - no facial droop , equal freelance makeup artist strength, EOMI's Skin: normal color, no rash, warm/dry, well hydrated Lymphatic: no adenopathy (Aydee Michele) Medical Decision Making [place] Attestation Dr. castillo is my supervising Physician whom patient management has been discussed with. (Aydee Michele) Medicare Attestation The history of Bella Kaye has been reviewed and management options for her have been examined and discussed by Darren Winetr. I have personally examined and interviewed the patient. (DARREN WINTER M.D.) Diagnostic Impression: Primary Impression: Tinnitus Qualified Codes: H93.12 - Tinnitus, left ear ER Course 71-year-old female presents to the emergency department complaining of his a noise in the left ear times one day. Patient states that she was evaluated by ENT specialist yesterday she was not having a problem at the time. Patient does have a history of tinnitus and has been evaluated by neurology as well as several ENT specialist. Patient states that the ENT specialist that she saw yesterday recommended that she may need a hearing aid to cancel out the hissing noise that she keeps hearing. Patient also presents with her recent tearing examination showing diagnosis of sensorial hearing loss. She denies pain at this time she denies dizziness, recent trauma or fall or changes in vision. Denies ear tenderness, d/c or q-tip use. Patient denies nausea, vomiting. Denies CP, Palpitations, LOC, AMS, dizziness, Changes in Vision, Sensation, paresthesias, or a sudden severe headache. Ddx considered but are not limited to auditory nerve damage, infection, neurological dysfunction/ mass, menineres/BPPV just to name a few. Vital signs: are WNL, pt. is afebrile H&PE are most consistent with Chronic intermittent tinnitus, no focal neurological deficits, previous normal evaluations by neurologist. ORDERS: none required at this time, the diagnosis is clinical ED INTERVENTIONS: None required at this time. -Pt. given reassurance that there is not an acute emergent condition at this time. that she will be treated conservatively and that she needs to follow up with ENT specialist. DISCHARGE: At this time pt. is stable for d/c to home. Will provide printed patient care instructions, and any necessary prescriptions. Care plan and follow up instructions have been discussed with the patient prior to discharge. (Aydee Michele) Last Vital Signs Date Time Temp Pulse Resp B/P (MAP) Pulse Ox O2 Delivery O2 Flow Rate FiO2 01/08/17 16:05 97.5 90 16 110/63 96 Room Air (Aydee Michele) Disposition: HOME, SELF-CARE Condition: Stable Scripts Meclizine Hcl* (MECLIZINE*) 12.5 Mg Tablet 12.5 MG ORAL THREE TIMES A DAY, #15 TAB Prov: Aydee Michele 01/08/17 Referrals: NON PHYSICIAN (PCP) Patient Instructions: Tinnitus Additional Instructions: Take medications as directed. Follow up with your ENT Specialist in 3-5 days, even if your symptoms have resolved. Return sooner to ED if new symptoms occur, or current symptoms become worse. Do not drink alcohol, drive, or operate heavy machinery while taking Meclizine as this may cause drowsiness. - Please note that this Emergency Department Report was dictated using [employer] Cateringtelemetry nurse technology software, occasionally this can lead to erroneous entry secondary to interpretation by the dictation equipment. Aydee Michele Jan 08, 2017 21:38 DARREN WINTER M.D. Jan 09, 2017 14:16
== END 2017-01-08 16:05 | disposition home or self-care (01) ==
LOC: EMR 15:57
DX: H93.12 Tinnitus, left ear (principal); J45.909 Unspecified asthma, uncomplicated
CPT/HCPCS: 99283

== ENCOUNTER 2017-02-16 12:07 | Emergency (ER) | payer MEDICARE, MEDICAID ==
[~2017-02-16] VITALS: Ht 170.2 cm; Wt 68.0 kg
[~2017-02-16 12:07] MED LIST changes: +MECLIZINE HCL12.5 MG ORAL
[2017-02-16 12:08] VITALS: BP 137/79
[2017-02-16] MEDS ORDERED: Norco 5mg/325mg tab ORAL ONE (12:30)
[2017-02-16] MEDS ORDERED: NORCO 5-325 TA1 EAC1 ORAL (13:54)
[2017-02-16] MEDS ORDERED: MULTIVITAMINS1 EAC2 ORAL (13:54)
[2017-02-16 14:35] VITALS: BP 137/79
--- NOTE | 2017-02-16 23:48 | Emergency Room Report ---
History of Present Illness General Chief Complaint: Back Pain-No Injury Source: Patient, Medical Record, EMS Present Illness HPI The patient is a 71-year-old female with a history of chronic back pain presenting for back pain. This began this morning described as a 9/10 dull ache. She denies any injury that may have caused the pain. Pain does not radiate. 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 She denies any incontinence or other symptoms including fever, chills, abdominal pain Allergies: Coded Allergies: No Known Allergies (Unverified , 09/04/12) Patient History Past Medical History: see triage record Pertinent Family History: none Reviewed Nursing Documentation: PMH: Agreed, PSxH: Agreed Nursing Documentation-PMH Past Medical History: No Stated History Hx Cardiac Problems: No - INSOMNIA, tinnitus Hx Asthma: Yes Hx Cancer: No Hx Neurological Problems: No Review of Systems All Other Systems: negative except mentioned in HPI Physical Exam Vital Signs Date Time Temp Pulse Resp B/P (MAP) Pulse Ox O2 Delivery O2 Flow Rate FiO2 02/16/17 11:54 98.1 94 16 139/81 100 Room Air Sp02 EP Interpretation: reviewed, normal General Appearance: no apparent distress, alert, GCS 15, non-toxic Head: normocephalic, atraumatic Eyes: bilateral eye normal inspection, bilateral eye PERRL ENT: hearing grossly normal, normal pharynx, no angioedema, normal voice Respiratory: chest non-tender, lungs clear, normal breath sounds, speaking full sentences Gastrointestinal: normal bowel sounds, non tender, soft, non-distended, no guarding, no rebound Musculoskeletal: tender - bilat lumbar paraspinal muscles Neurologic: alert, oriented x3, responsive, motor strength/tone normal, sensory intact, speech normal Psychiatric: judgement/insight normal, memory normal, mood/affect normal, no suicidal/homicidal ideation Skin: normal color, no rash, warm/dry, well hydrated Medical Decision Making PA Attestation Dr. Montiel is my supervising physician. Patient management was discussed with my supervising physician Diagnostic Impression: Primary Impression: Back pain Qualified Codes: M54.5 - Low back pain ER Course The patient is a 71-year-old female with a history of chronic back pain presenting for back pain Ddx considered include but not limited to lumbar strain, degenerative disease, epidural abscess, cauda equina syndrome, chronic pain, narcotic dependency. PE: Afebrile. No apparent distress Lungs are clear to auscultation bilaterally Abdomen soft and nontender There is trace to palpation to the lateral lumbar paraspinal muscles. No midline tenderness or step-offs. The patient will be discharged with prescription for pain medication. ER precautions are given Last Vital Signs Date Time Temp Pulse Resp B/P (MAP) Pulse Ox O2 Delivery O2 Flow Rate FiO2 02/16/17 14:35 98.0 75 16 137/79 100 Room Air Status: improved Disposition: HOME, SELF-CARE Condition: Improved Scripts Hydrocodone Bit/Acetaminophen 5-325* (NORCO 5-325 TABLET*) 1 Each Tablet 1 TAB ORAL Q6HR Y for For Pain, #10 TAB Prov: BERNIE JETER 02/16/17 Multivitamins* (MULTIVITAMINS*) 1 Each Tablet 1 TAB ORAL DAILY, #30 TAB 0 Refills Prov: BERNIE JETER 02/16/17 Referrals: [facility],REFERRING (PCP) Patient Instructions: Back Pain, Adult Additional Instructions: I discussed my findings with the patient. All questions and concerns have been answered. Treatment and medication compliance have been addressed. I advised the patient that they need to follow up with PMD in 3-5 days. Return to ED if symptoms worsen, new symptoms arise, or if needed for any reason. Patient verbalized understanding of discharge instructions. BERNIE JETER Feb 16, 2017 23:48
== END 2017-02-16 14:35 | disposition home or self-care (01) ==
LOC: EDBD 12:07 → EMR 12:35
DX: M54.9 Dorsalgia, unspecified (principal); G89.29 Other chronic pain; J45.909 Unspecified asthma, uncomplicated
CPT/HCPCS: 99284

== ENCOUNTER 2017-07-07 16:55 | Emergency (ER) | payer MEDICARE, MEDICAID ==
[~2017-07-07] VITALS: Ht 170.2 cm; Wt 45.4 kg
[~2017-07-07 16:55] MED LIST changes: +MULTIVITAMINS1 EAC2 ORAL; +NORCO 5-325 TA1 EAC1 ORAL
[2017-07-07 17:12] VITALS: BP 113/69
[2017-07-07] MEDS ORDERED: Hydrocortisone 2.5% Oint 30gm TOPIC PRN (18:00)
--- NOTE | 2017-07-07 18:07 | Emergency Room Report ---
History of Present Illness General Chief Complaint: General Complaint Source: Patient, Medical Record (Aydee Michele) Present Illness HPI 72 YO Female presents to the ED c/o many bug bites that are associated with Itching, localized swelling, and erythema of posterior neck , ankle and calves. Denies lesions/rashes elsewhere on the body. Denies open wounds or bleeding. Denies pain. Denies new medications or body washes or creams. Denies swelling of the lips, tongue , throat or airway. Denies wheezing, or shortness of breath. Denies recent travel, recent illness or ill contacts. denies blisters, oral lesions, or sloughing of the skin. (Aydee Michele) Allergies: Coded Allergies: No Known Allergies (Unverified , 09/04/12) Patient History Past Medical History: see triage record Past Surgical History: none Pertinent Family History: none Reviewed Nursing Documentation: PMH: Agreed; PSxH: Agreed (Aydee Michele) Nursing Documentation-PMH Past Medical History: No History, Except For Hx Cardiac Problems: No - INSOMNIA, tinnitus Hx Asthma: Yes Hx Cancer: No Hx Neurological Problems: No (Aydee Michele) Review of Systems All Other Systems: negative except mentioned in HPI (Aydee Michele) Physical Exam Vital Signs Date Time Temp Pulse Resp B/P (MAP) Pulse Ox O2 Delivery O2 Flow Rate FiO2 07/07/17 17:09 98.1 78 16 113/69 96 Room Air 98.1 Sp02 EP Interpretation: reviewed, normal General Appearance: no apparent distress, alert, GCS 15, non-toxic Head: normocephalic, atraumatic Eyes: bilateral eye normal inspection, bilateral eye PERRL ENT: hearing grossly normal, no angioedema, normal voice Neck: full range of motion Respiratory: chest non-tender, lungs clear, normal breath sounds, no wheezing, speaking full sentences Cardiovascular #1: regular rate, rhythm Musculoskeletal: back normal, gait/station normal, normal range of motion, non- tender Neurologic: alert, oriented x3, responsive, motor strength/tone normal, sensory intact, speech normal, grossly normal Psychiatric: judgement/insight normal Skin: normal color, no rash, warm/dry, well hydrated, other - multiple insect bites on the nape of the neck, bilateral ankles and calves x 3 days. excoriations noted, no erythema, crusting, d/c, blisters or vesicles. Lymphatic: no adenopathy (Aydee Michele) Medical Decision Making PA Attestation Dr. castillo is my supervising Physician whom patient management has been discussed with. (Aydee Michele) Medicare Attestation The history of Bella Kaye has been reviewed and management options for her have been examined and discussed by Darren Winter. I have personally examined and interviewed the patient. (Darren Winter MD) Diagnostic Impression: Primary Impression: Bed bug bite Qualified Codes: W57.XXXA - Bitten or stung by nonvenomous insect and other nonvenomous arthropods, initial encounter Additional Impression: Insect bites Qualified Codes: W57.XXXA - Bitten or stung by nonvenomous insect and other nonvenomous arthropods, initial encounter ER Course 72 YO Female presents to the ED c/o many bug bites that are associated with Itching, localized swelling, and erythema of posterior neck , ankle and calves. Denies lesions/rashes elsewhere on the body. Denies open wounds or bleeding. Denies pain. Denies new medications or body washes or creams. Denies swelling of the lips, tongue , throat or airway. Denies wheezing, or shortness of breath. Denies recent travel, recent illness or ill contacts. denies blisters, oral lesions, or sloughing of the skin. Ddx considered but are not limited to cellulitis, scabies, insect bites, tic bites, spider bites, contact dermatitis, Drug reaction, allergic reaction, fungal infection, lice. Vital signs: are WNL, pt. is afebrile H&PE are most consistent with multiple insect bites on the nape of the neck, bilateral ankles and calves - no evidence of drug reaction, or impending anaphylaxis/ airway compromise ORDERS: none required at this time, the diagnosis is clinical ED INTERVENTIONS: -Hydrocortisone cream DISCHARGE: At this time pt. is stable for d/c to home. Will provide printed patient care instructions, and any necessary prescriptions. Care plan and follow up instructions have been discussed with the patient prior to discharge. (Aydee Michele) Last Vital Signs Date Time Temp Pulse Resp B/P (MAP) Pulse Ox O2 Delivery O2 Flow Rate FiO2 07/07/17 17:12 98.1 74 16 113/69 96 Room Air 98.1 (Aydee Michele) Disposition: HOME, SELF-CARE Condition: Stable Scripts Permethrin* (ELIMITE*) 60 Gm Cream..g. 1 APPLIC TOPIC ONCE, #60 GM 0 Refills Apply cream from head to toe; leave on for 8-14 hours before washing off with water; may reapply in 1 week if live mites appear. Prov: Aydee Michele 07/07/17 Bacitracin/Polymyxin B Sulfate (BACITRACIN-POLYMYXIN OINTMENT) 28.35 Gm Oint...g. 1 APPLIC TP BID, #28.3 GM Prov: Aydee Michele 07/07/17 Diphenhydramine Hcl (BENADRYL ALLERGY) 25 Mg Tablet 25 MG PO Q6HR, #20 TAB Prov: Aydee Michele 07/07/17 Patient Instructions: Insect Bite Additional Instructions: Take medications as directed. Follow up with a Primary Care Provider in 3-5 days, even if your symptoms have resolved. --Please review list of primary care clinics, if you do not already have a primary care provider Return sooner to ED if new symptoms occur, or current symptoms become worse. Do not drink alcohol, drive, or operate heavy machinery while taking Benadryl as this may cause drowsiness. - Please note that this Emergency Department Report was dictated using [employer] peripheral equipment operator technology software, occasionally this can lead to erroneous entry secondary to interpretation by the dictation equipment. Aydee Michele July 07, 2017 18:07 Darren Winter MD July 09, 2017 06:39
[2017-07-07] MEDS ORDERED: BENADRYL ALLERG25 M1 PO (18:09)
[2017-07-07] MEDS ORDERED: BACITRACIN-P28.35 GM TP (18:09)
[2017-07-07] MEDS ORDERED: PERMETHRIN60 GM TOPIC (18:09)
[2017-07-07] MEDS ORDERED: Hydrocortisone 2.5% Oint 30gm TOPIC ONE (18:30)
[2017-07-07 18:43] VITALS: BP 113/69
[2017-07-07] MEDS ORDERED: Tetanus/Diptheria/Pertussis Vaccine 0.5ml Syr IM ONE (18:45)
== END 2017-07-07 18:43 | disposition home or self-care (01) ==
LOC: EMR 17:25
DX: S10.86XA Insect bite of other specified part of neck, initial encounter (principal); S90.562A Insect bite (nonvenomous), left ankle, initial encounter; S90.561A Insect bite (nonvenomous), right ankle, initial encounter; S80.862A Insect bite (nonvenomous), left lower leg, initial encounter; S80.861A Insect bite (nonvenomous), right lower leg, initial encounter; W57.XXXA Bitten or stung by nonvenomous insect and other nonvenomous arthropods, initial encounter; Y92.9 Unspecified place or not applicable; Z23 Encounter for immunization; J45.909 Unspecified asthma, uncomplicated; G47.00 Insomnia, unspecified
CPT/HCPCS: 90471; 90715; 96372; 99284

== ENCOUNTER 2017-07-16 15:09 | Emergency (ER) | payer MEDICARE, MEDICAID ==
[~2017-07-16] VITALS: Ht 170.2 cm; Wt 54.0 kg
[~2017-07-16 15:09] MED LIST changes: +BACITRACIN-P28.35 GM TP; +BENADRYL ALLERG25 M1 PO
--- NOTE | 2017-07-16 15:53 | Emergency Room Report ---
History of Present Illness General Chief Complaint: Animal Bite Source: Patient Present Illness HPI 72 YO Female presents to the ED c/O multiple Insect bites primarily on the right upper extremity few on the left upper extremity. Patient was seen here previously for similar symptoms on her back those have resolved however these newer symptoms have appeared over the course of the last 4-5 days. She denies fevers, chills, recent travel. Denies new medications or body washes or creams. Denies swelling of the lips, tongue , throat or airway. Denies wheezing, or shortness of breath. Denies recent travel, recent illness or ill contacts. denies blisters, oral lesions, or sloughing of the skin. Allergies: Coded Allergies: No Known Allergies (Unverified , 09/04/12) Patient History Past Medical History: see triage record Past Surgical History: none Pertinent Family History: none Reviewed Nursing Documentation: PMH: Agreed; PSxH: Agreed Nursing Documentation-PMH Past Medical History: No History, Except For Hx Cardiac Problems: No - INSOMNIA, tinnitus Hx Asthma: Yes Hx Cancer: No Hx Neurological Problems: No Review of Systems All Other Systems: negative except mentioned in HPI Physical Exam Vital Signs Date Time Temp Pulse Resp B/P (MAP) Pulse Ox O2 Delivery O2 Flow Rate FiO2 07/16/17 15:34 98.1 81 14 111/62 96 Room Air 98.1 Sp02 EP Interpretation: reviewed, normal General Appearance: no apparent distress, alert, GCS 15, non-toxic Head: normocephalic, atraumatic ENT: hearing grossly normal, normal voice, other - no swelling of the lips or tongue Neck: full range of motion Respiratory: lungs clear, normal breath sounds, no wheezing, speaking full sentences Cardiovascular #1: regular rate, rhythm, normal capillary refill Musculoskeletal: back normal, gait/station normal, normal range of motion, non- tender Neurologic: alert, oriented x3, responsive, motor strength/tone normal, sensory intact, normal gait, speech normal, grossly normal Psychiatric: judgement/insight normal Skin: normal color, warm/dry, well hydrated, other - multiple discrete insect bites with localized reaction/ induration, mild erythema, no crusting, vesicles or blisters. on the bilateral UE's Lymphatic: no adenopathy Medical Decision Making PA Attestation Dr. castillo is my supervising Physician whom patient management has been discussed with. Diagnostic Impression: Primary Impression: Insect bite Qualified Codes: W57.XXXA - Bitten or stung by nonvenomous insect and other nonvenomous arthropods, initial encounter ER Course 72 YO Female presents to the ED c/O multiple Insect bites primarily on the right upper extremity few on the left upper extremity. Patient was seen here previously for similar symptoms on her back those have resolved however these newer symptoms have appeared over the course of the last 4-5 days. She denies fevers, chills, recent travel. Denies new medications or body washes or creams. Denies swelling of the lips, tongue , throat or airway. Denies wheezing, or shortness of breath. Denies recent travel, recent illness or ill contacts. denies blisters, oral lesions, or sloughing of the skin. Ddx considered but are not limited to cellulitis, scabies, insect bites, tic bites, spider bites, contact dermatitis, Drug reaction, allergic reaction, fungal infection, lice. Vital signs: are WNL, pt. is afebrile H&PE are most consistent with multiple discrete insect bites with localized reaction/ induration, mild erythema, no crusting, vesicles or blisters. ORDERS: none required at this time, the diagnosis is clinical ED INTERVENTIONS: None required at this time. DISCHARGE: At this time pt. is stable for d/c to home. Will provide printed patient care instructions, and any necessary prescriptions. Care plan and follow up instructions have been discussed with the patient prior to discharge. Last Vital Signs Date Time Temp Pulse Resp B/P (MAP) Pulse Ox O2 Delivery O2 Flow Rate FiO2 07/16/17 15:34 98.1 81 14 111/62 96 Room Air 98.1 Disposition: HOME, SELF-CARE Condition: Stable Scripts Hydrocortisone (Hydrocortisone Cream 2.5%) Y Cream.appl 1 APPLIC TP BID, #28.3 GM Prov: Aydee Michele P.A. 07/16/17 Diphenhydramine Hcl (BENADRYL ALLERGY) 25 Mg Tablet 25 MG PO Q6HR, #20 TAB Prov: Aydee Michele P.A. 07/16/17 Permethrin* (ELIMITE*) 60 Gm Cream..g. 1 APPLIC TOPIC ONCE, #60 GM 0 Refills Apply cream from head to toe; leave on for 8-14 hours before washing off with water; may reapply in 1 week if live mites appear. Prov: Aydee Michele 07/16/17 Patient Instructions: Bedbugs, [id number], Insect Bite, [id number] Additional Instructions: Take medications as directed. Follow up with a Primary Care Provider in 3-5 days, even if your symptoms have resolved. --Please review list of primary care clinics, if you do not already have a primary care provider Return sooner to ED if new symptoms occur, or current symptoms become worse. Do not drink alcohol, drive, or operate heavy machinery while taking Benadryl as this may cause drowsiness. - Please note that this Emergency Department Report was dictated using [employer] Solutionsdistance education teacher technology software, occasionally this can lead to erroneous entry secondary to interpretation by the dictation equipment. Aydee Michele Jul 16, 2017 15:53
[2017-07-16] MEDS ORDERED: BENADRYL ALLERG25 M1 PO (15:55)
[2017-07-16] MEDS ORDERED: HYDROCORTISONE30 G2 TP (15:55)
[2017-07-16] MEDS ORDERED: PERMETHRIN60 GM TOPIC (15:55)
[2017-07-16 16:01] VITALS: BP 111/62
[2017-07-16] MEDS ORDERED: Hydrocortisone 2.5% Oint 30gm TOPIC PRN (16:30)
== END 2017-07-16 16:50 | disposition home or self-care (01) ==
LOC: EMR 16:06
DX: S40.862A Insect bite (nonvenomous) of left upper arm, initial encounter (principal); S40.861A Insect bite (nonvenomous) of right upper arm, initial encounter; W57.XXXA Bitten or stung by nonvenomous insect and other nonvenomous arthropods, initial encounter; Y92.9 Unspecified place or not applicable
CPT/HCPCS: 99283

== ENCOUNTER 2017-09-03 08:23 | Emergency (ER) | payer MEDICARE, MEDICAID ==
[~2017-09-03] VITALS: Ht 170.2 cm; Wt 47.6 kg
[~2017-09-03 08:23] MED LIST changes: +HYDROCORTISONE30 G2 TP
[2017-09-03 08:37] VITALS: BP 144/78
[2017-09-03 09:24] LABS: BASOPHILS % (AUTO) 0.7 % (0.0-2.0); EOSINOPHILS % (AUTO) 0.4 % (0.0-3.0); HEMATOCRIT 40.7 % (37.0-47.0); HEMOGLOBIN 13.9 G/DL (12.0-16.0); LYMPHOCYTES % (AUTO) 34.5 % (20.0-45.0); MEAN CORPUSCULAR VOLUME 94 FL (80-99); MONOCYTES % (AUTO) 7.2 % (1.0-10.0); NEUTROPHILS % (AUTO) 57.2 % (45.0-75.0); PLATELET COUNT 161 K/UL (150-450); RED BLOOD COUNT 4.35 M/UL (4.20-5.40); RED CELL DISTRIBUTION WIDTH 11.2 % (11.6-14.8); WHITE BLOOD COUNT 5.3 K/UL (4.8-10.8)
[2017-09-03 09:24] LABS: APPEARANCE,URINE CLEAR; BILIRUBIN, URINE NEGATIVE (NEGATIVE); GLUCOSE, URINE (UA) NEGATIVE (NEGATIVE); KETONES,URINE NEGATIVE (NEGATIVE); LEUKOCYTE ESTERASE ,URINE NEGATIVE (NEGATIVE); NITRITE,URINE NEGATIVE (NEGATIVE); PH,URINE 5 (4.5-8.0); PROTEIN,URINE NEGATIVE (NEGATIVE); UROBILINOGEN,URINE NORMAL MG/DL (0.0-1.0)
[2017-09-03 09:30] LABS: ANION GAP 7 mmol/L (5-15); BLOOD UREA NITROGEN 11 mg/dL (7-18); CALCIUM 8.9 MG/DL (8.5-10.1); CARBON DIOXIDE 29 MMOL/L (21-32); CHLORIDE 105 MMOL/L (98-107); CREATININE 0.7 MG/DL (0.55-1.30); POTASSIUM 3.3 MMOL/L (3.5-5.1); SODIUM 141 MMOL/L (136-145)
[2017-09-03 09:30] LABS: COLOR,URINE YELLOW
[2017-09-03 09:36] LABS: ALANINE AMINOTRANSFERASE 25 U/L (12-78); ALBUMIN/GLOBULIN RATIO 1.1 (1.0-2.7); ALKALINE PHOSPHATASE 47 U/L (46-116); ASPARTATE AMINO TRANSFERASE 19 U/L (15-37); BILIRUBIN,TOTAL 0.4 MG/DL (0.2-1.0)
--- NOTE | 2017-09-03 10:04 | Diagnostic Imaging Report ---
History: AMS Exam: CT HEAD Without Contrast Technique more: CTDI is 70.38 mGy and DLP is 1422 mGy-cm. Technique more: One or more of the following dose reduction techniques were used: automated exposure control, adjustment of the mA and/or kV according to patient size, use of iterative reconstruction technique. Comparison: 07/26/2009 FINDINGS: No intracranial hemorrhage, mass effect or CT evidence of acute infarct. The ventricles are within limits and midline. The visualized paranasal sinuses, mastoids and orbits are within limits. IMPRESSION: No intracranial hemorrhage, mass effect or CT evidence of acute infarct.
--- NOTE | 2017-09-03 10:38 | Emergency Room Report ---
History of Present Illness General Chief Complaint: General Complaint Source: Patient Present Illness HPI This patient states that she is worried that she is developing dementia. She states that her mother has a history of dementia. She is concerned because of multiple issues. She states that twice this year she is accidentally left the stove on. She states that the fire department has had to come to her home. She states that she also got lost walking one day. Today she states she almost forgot to put on her underwear. She does have a medical social worker. She lives alone. She has no other complaints. She otherwise is well. She denies weakness. She denies tingling or numbness. She denies recent illness. She has no other complaints. Allergies: Coded Allergies: No Known Allergies (Unverified , 09/04/12) Patient History Past Medical History: see triage record, asthma, psych hx Social History: Denies: smoking, alcohol use, drug use Last Menstrual Period: NA Now: No Reviewed Nursing Documentation: PMH: Agreed; PSxH: Agreed Nursing Documentation-PMH Past Medical History: No History, Except For Hx Cardiac Problems: No - INSOMNIA, tinnitus Hx Asthma: Yes Hx Cancer: No Hx Neurological Problems: No Review of Systems All Other Systems: negative except mentioned in HPI Physical Exam Vital Signs Date Time Temp Pulse Resp B/P (MAP) Pulse Ox O2 Delivery O2 Flow Rate FiO2 09/03/17 08:31 98.3 84 18 144/78 95 Room Air 98.2 Sp02 EP Interpretation: reviewed, normal General Appearance: no apparent distress, alert, GCS 15, non-toxic Head: normocephalic, atraumatic Eyes: bilateral eye normal inspection, bilateral eye PERRL ENT: hearing grossly normal, normal pharynx, no angioedema, normal voice Neck: full range of motion, supple/symm/no masses Respiratory: chest non-tender, lungs clear, normal breath sounds, no respiratory distress, no retraction, no accessory muscle use, speaking full sentences Cardiovascular #1: regular rate, rhythm, no edema Gastrointestinal: normal bowel sounds, non tender, soft, non-distended, no guarding, no rebound Rectal: deferred Musculoskeletal: back normal, gait/station normal, normal range of motion, non- tender Neurologic: alert, oriented x3, responsive, motor strength/tone normal, sensory intact, speech normal Psychiatric: judgement/insight normal, memory normal, mood/affect normal, no suicidal/homicidal ideation Skin: normal color, no rash, warm/dry, well hydrated Medical Decision Making Diagnostic Impression: Primary Impression: Dementia ER Course This patient does have a history consistent with early dementia. Patient does live alone. She is articulate and able to care for her self overall. She is well dressed and organized. Further discussion with the patient, and she states that she is very concerned that she could be developing dementia given her family history. She states that she does have a medical social worker that she will contact as soon as possible. She states that she will discuss assisted living with the medical social worker. She states that she had been considering this previously. Overall, the patient's workup today is benign. CT of the head shows no acute findings. Laboratory workup is also benign. The patient has a plan and is articulate and organized. I feel that there is no imminent danger to her. She was given return precautions and follow-up instructions. Laboratory Tests Test 09/03/17 08:17 09/03/17 08:55 Urine Color Yellow Urine Appearance Clear Urine pH 5 (4.5-8.0) Urine Specific [place] 1.020 (1.005-1.035) Urine Protein Negative (NEGATIVE) Urine Glucose (UA) Negative (NEGATIVE) Urine Ketones Negative (NEGATIVE) Urine Occult Blood Negative (NEGATIVE) Urine Nitrite Negative (NEGATIVE) Urine Bilirubin Negative (NEGATIVE) Urine Urobilinogen Normal MG/DL (0.0-1.0) Urine Leukocyte Esterase Negative (NEGATIVE) White Blood Count 5.3 K/UL (4.8-10.8) Red Blood Count 4.35 M/UL (4.20-5.40) Hemoglobin 13.9 G/DL (12.0-16.0) Hematocrit 40.7 % (37.0-47.0) Mean Corpuscular Volume 94 FL (80-99) Mean Corpuscular Hemoglobin 32.0 PG (27.0-31.0) H Mean Corpuscular Hemoglobin Concent 34.2 G/DL (32.0-36.0) Red Cell Distribution Width 11.2 % (11.6-14.8) L Platelet Count 161 K/UL (150-450) Mean Platelet Volume 6.2 FL (6.5-10.1) L Neutrophils (%) (Auto) 57.2 % (45.0-75.0) Lymphocytes (%) (Auto) 34.5 % (20.0-45.0) Monocytes (%) (Auto) 7.2 % (1.0-10.0) Eosinophils (%) (Auto) 0.4 % (0.0-3.0) Basophils (%) (Auto) 0.7 % (0.0-2.0) Prothrombin Time 10.7 SEC (9.30-11.50) Prothrombin Time INR 1.0 (0.9-1.1) PTT 27 SEC (23-33) Sodium Level 141 MMOL/L (136-145) Potassium Level 3.3 MMOL/L (3.5-5.1) L Chloride Level 105 MMOL/L (98-107) Carbon Dioxide Level 29 MMOL/L (21-32) Anion Gap 7 mmol/L (5-15) Blood Urea Nitrogen 11 mg/dL (7-18) Creatinine 0.7 MG/DL (0.55-1.30) Estimate Glomerular Filtration Rate mL/min (>60) Glucose Level 99 MG/DL (74-106) Calcium Level 8.9 MG/DL (8.5-10.1) Total Bilirubin 0.4 MG/DL (0.2-1.0) Aspartate Amino Transferase (AST) 19 U/L (15-37) Alanine Aminotransferase (ALT) 25 U/L (12-78) Alkaline Phosphatase 47 U/L (46-116) Troponin I 0.000 ng/mL (0.000-0.056) Total Protein 7.5 G/DL (6.4-8.2) Albumin 4.0 G/DL (3.4-5.0) Globulin 3.5 g/dL Albumin/Globulin Ratio 1.1 (1.0-2.7) EKG Diagnostic Results Rate: normal Rhythm: NSR ST Segments: no acute changes Rhythm Strip Diag. Results EP Interpretation: yes Rate: 60's Rhythm: NSR, no PVC's, no ectopy Last Vital Signs Date Time Temp Pulse Resp B/P (MAP) Pulse Ox O2 Delivery O2 Flow Rate FiO2 09/03/17 08:37 98.2 84 18 144/78 95 Room Air 98.2 Status: improved Disposition: HOME, SELF-CARE Condition: Improved Referrals: NON PHYSICIAN (PCP) Lanie Montiel DO Sep 03, 2017 10:38
[2017-09-03 10:52] VITALS: BP 133/72
== END 2017-09-03 10:51 | disposition home or self-care (01) ==
LOC: EMR 08:45
DX: F03.90 Unspecified dementia, unspecified severity, without behavioral disturbance, psychotic disturbance, mood disturbance, and anxiety (principal); J45.909 Unspecified asthma, uncomplicated
CPT/HCPCS: 36415; 70450; 80053; 81003; 84484; 85025; 85610; 85730; 93005; 99284

== ENCOUNTER 2017-09-18 13:10 | Emergency (ER) | payer MEDICARE, MEDICAID ==
[~2017-09-18] VITALS: Ht 170.2 cm; Wt 63.5 kg
[2017-09-18 13:18] VITALS: BP 124/73
[2017-09-18] MEDS ORDERED: TYLENOL EXTRA500 MG ORAL (13:46)
[2017-09-18] MEDS ORDERED: HYDROCORTISONE30 G2 TP (13:46)
--- NOTE | 2017-09-18 13:46 | Emergency Room Report ---
History of Present Illness General Chief Complaint: General Complaint Source: Patient Present Illness HPI 72-year-old female patient presents ER complaining of right-sided neck pain status post this morning. Denies acute injury or trauma. Reports feeling of stiffness. Reports that she woke up and her right side of her neck started to feel painful. Reports she has not taken any medications. Denies loss of range of motion of neck. Denies headache or other acute symptoms. Denies fever, chest pain, shortness of breath. Denies vision changes. Also requesting refill of hydrocortisone topical medication for bug bite on her left leg. Denies drainage or other acute symptoms. Reports bug bite is itchy. reports history of thyroid nodule, had for "awhile", currently being monitored, was told it was benign. Denies sore throat, ear pain, pain with swallowing, cough. Contrary to triage report, does not report chin pain. Allergies: Coded Allergies: No Known Allergies (Unverified , 09/04/12) Patient History Past Medical History: see triage record Reviewed Nursing Documentation: PMH: Agreed; PSxH: Agreed Nursing Documentation-PMH Past Medical History: No History, Except For Hx Cardiac Problems: No - Thyroid disorder Hx Hypertension: No Hx Pacemaker: No Hx Asthma: No Hx COPD: No Hx Diabetes: No Hx Cancer: No Hx Gastrointestinal Problems: No Hx Dialysis: No History Of Psychiatric Problem: No Hx Neurological Problems: No Hx Cerebrovascular Accident: No Hx Seizures: No Review of Systems All Other Systems: negative except mentioned in HPI Physical Exam Vital Signs Date Time Temp Pulse Resp B/P (MAP) Pulse Ox O2 Delivery O2 Flow Rate FiO2 09/18/17 13:18 98.2 84 16 124/73 97 Room Air 98.2 Sp02 EP Interpretation: reviewed, normal General Appearance: well appearing, no apparent distress, alert, GCS 15, non- toxic Head: normocephalic, atraumatic, other - no TTP over chin, massester, temporal regions bilaterally, no swelling or erythema, no mastoid process swelling Eyes: bilateral eye normal inspection, bilateral eye PERRL ENT: hearing grossly normal, normal pharynx, no angioedema, normal voice, TMs + canals normal, uvula midline, moist mucus membranes, other - dentures, no erythema or edema, no exudates, no erythema Neck: full range of motion, no meningismus, no bony tend, other - right sided thyroid nodule ~1cm, no TTP, no erythema Respiratory: lungs clear, normal breath sounds, no rhonchi, no respiratory distress, no accessory muscle use, no wheezing, speaking full sentences Cardiovascular #1: regular rate, rhythm, no edema Musculoskeletal: back normal, digits/nails normal, gait/station normal, normal range of motion, non-tender Neurologic: alert, oriented x3, responsive, wire hanger III-XII nml as tested, motor strength/tone normal, sensory intact, cerebellar normal, normal gait, speech normal, other - no facial droop Psychiatric: mood/affect normal Skin: rash - ankle: 3cm erythematous urticarial rash noted, consistent with hx of bug bite, no vesicles, no bleeding, no bite peter, no active draining, no fluctance or induration Lymphatic: no adenopathy Medical Decision Making PA Attestation Dr. Rendon is my supervising Physician whom patient management has been discussed with. Diagnostic Impression: Primary Impression: Neck muscle strain ER Course Pt. presents to the ED c/o neck pain. Ddx considered but are not limited to sprain, strain, fracture, muscle spasm, meningitis. Vital signs: are WNL, pt. is afebrile ER COURSE: provided with pain medication. afebrile, no meningismus, full range of motion, low suspicion for meningitis. Likely soft tissue strain or sprain secondary to sleeping improperly. No bony tenderness, no loss of range of motion, doesn't require imaging at this time. take Tylenol for pain symptoms. Advised on treatment. Follow-up with primary care provider discuss further management and treatment for thyroid nodule. Unlikely causing symptoms at this time due to chronicity of nodule being present without pain symptoms per patient report. Armando provide refill of his course on cream. Follow with primary care provider. Do not scratch her itch. Request referral to derm as needed. DISCHARGE: Rx provided for Tylenol Rx provided for Hydrocortisone cream At this time pt is stable for d/c to home. Patient is resting comfortably, in no acute distress, nontoxic appearing, talking without difficulty. Patient to take medications as instructed Will provide with patient care instructions and any necessary prescriptions. Care plan and follow-up instructions provided. Patient instructed to follow-up with primary care provider in 3 - 5 days. Patient questions asked and answered. Patient reports understanding and agreement to treatment plan. ER precautions given. Patient instructed to return to ER immediately for any new or worsening of symptoms including but not limited to increasing SOB, persistent fever, chest pain, intractable vomiting. - Please note that this Emergency Department Report was dictated using [employer] press supervisor technology software, occasionally this can lead to erroneous entry secondary to interpretation by the dictation equipment. Last Vital Signs Date Time Temp Pulse Resp B/P (MAP) Pulse Ox O2 Delivery O2 Flow Rate FiO2 09/18/17 13:18 98.2 84 16 124/73 97 Room Air 98.2 Status: improved Disposition: HOME, SELF-CARE Condition: Stable Scripts Hydrocortisone (Hydrocortisone Cream 2.5%) Y Cream.appl 1 APPLIC TP BID, #15 GM Prov: Allan Lincoln 09/18/17 Acetaminophen* (TYLENOL EXTRA STRENGTH*) 500 Mg Tablet 500 MG ORAL Q8H PRN for Prn Headache/Temp > 101, #30 TAB 0 Refills Prov: Allan Lincoln 09/18/17 Patient Instructions: Medicine Refill at the Emergency Department, Soft Tissue Injury of the Neck, [id number] Additional Instructions: Patient instructed to follow up with primary care provider 3-5 and discuss further referral and imaging at that time. Patient instructed on rest, ice and heat. Apply cool compresses to bug bite, do not scratch or itch. Take medications as directed. Patient questions asked and answered. ER precautions given, patient instructed to return to ER immediately for any new or worsening of symptoms. Allan Lincoln Sep 18, 2017 13:46
[2017-09-18 13:56] VITALS: BP 124/73
[2017-09-18] MEDS ORDERED: Acetaminophen 500mg (ES) tab ORAL ONE (14:00)
== END 2017-09-18 13:55 | disposition home or self-care (01) ==
LOC: EMR 13:30
DX: S16.1XXA Strain of muscle, fascia and tendon at neck level, initial encounter (principal); X50.1XXA Overexertion from prolonged static or awkward postures, initial encounter; Y92.009 Unspecified place in unspecified non-institutional (private) residence as the place of occurrence of the external cause; L50.9 Urticaria, unspecified
CPT/HCPCS: 99283

== ENCOUNTER 2017-10-25 11:02 | Emergency (ER) | payer MEDICARE, MEDICAID ==
[~2017-10-25] VITALS: Ht 170.2 cm; Wt 47.6 kg
[~2017-10-25 11:02] MED LIST changes: +TYLENOL EXTRA500 MG ORAL
[2017-10-25 11:10] VITALS: BP 97/64
[2017-10-25] MEDS ORDERED: DEBROX15 M1 LEFT EAR (11:45)
[2017-10-25] MEDS ORDERED: BENADRYL25 MG ORAL (11:53)
[2017-10-25 12:07] VITALS: BP 97/64
--- NOTE | 2017-10-25 14:33 | Emergency Room Report ---
History of Present Illness General Chief Complaint: Earache Source: Patient Present Illness HPI Patient presents emergency department today complaining of earache. Patient states that she feels like her left ear is plugged and she has a lot of ringing in her years. She denies any trauma. Denies any neck pain chest pain shortness breath and no complaint or noted. Symptoms noted to be mild/ moderate. No other modifying factors. No other associated signs and symptoms. No other complaints were noted. Allergies: Coded Allergies: No Known Allergies (Unverified , 09/04/12) Patient History Past Medical History: none Past Surgical History: none Pertinent Family History: none Social History: Denies: smoking, alcohol use, drug use Last Menstrual Period: unk Reviewed Nursing Documentation: PMH: Agreed; PSxH: Agreed Nursing Documentation-PMH Past Medical History: No Stated History Hx Cardiac Problems: No - Thyroid disorder Hx Hypertension: No Hx Pacemaker: No Hx Asthma: No Hx COPD: No Hx Diabetes: No Hx Cancer: No Hx Gastrointestinal Problems: No Hx Dialysis: No Hx Neurological Problems: No Hx Cerebrovascular Accident: No Hx Seizures: No Review of Systems All Other Systems: negative except mentioned in HPI Physical Exam Vital Signs Date Time Temp Pulse Resp B/P (MAP) Pulse Ox O2 Delivery O2 Flow Rate FiO2 10/25/17 11:06 98.1 65 16 97/64 96 Room Air 98.1 Sp02 EP Interpretation: reviewed, normal General Appearance: normal inspection, well appearing, no apparent distress, alert Head: atraumatic Eyes: bilateral eye normal inspection ENT: hearing grossly normal, normal voice, other - impacted cerum on left ear Neck: normal inspection, full range of motion, supple, no bony tend Respiratory: normal inspection, lungs clear, normal breath sounds, no respiratory distress, no retraction, no wheezing Cardiovascular #1: regular rate, rhythm, no edema Gastrointestinal: normal inspection, normal bowel sounds, non tender, soft, no guarding, no hernia Genitourinary: no CVA tenderness Musculoskeletal: normal inspection, back normal, normal range of motion Neurologic: normal inspection, alert, responsive, speech normal Psychiatric: normal inspection, judgement/insight normal, mood/affect normal Skin: normal inspection, normal color, no rash Medical Decision Making Diagnostic Impression: Primary Impression: Cerumen impaction Additional Impression: Tinnitus ER Course Patient presents emergency department today complaining of ringing in the left ear. Differential considerations include tenderness, otitis media, impacted cerumen. Patient's exam is consistent with impacted cerumen. I felt the patient would benefit from irrigation. Patient's ear was irrigated. Patient felt better. Patient was given a prescription for Debrox.Patient is advised to follow up with primary doctor in 2-3 days and return the emergency room for any worsening symptoms and as needed. Last Vital Signs Date Time Temp Pulse Resp B/P (MAP) Pulse Ox O2 Delivery O2 Flow Rate FiO2 10/25/17 12:07 98.1 75 16 97/64 96 Room Air 98.1 Status: improved Disposition: HOME, SELF-CARE Condition: Stable Scripts Diphenhydramine Hcl* (BENADRYL*) 25 Mg Capsule 50 MG ORAL QHS PRN for sleep, #15 CAP Prov: Bebo Panda MD 10/25/17 Carbamide Peroxide (DEBROX) 15 Ml Drops 5 DROP LEFT EAR TWICE A DAY for 4 Days, ML 0 Refills Prov: Bebo Panda MD 10/25/17 Referrals: NOT [facility]OSEN [facility]/,REFERRING (PCP) Patient Instructions: Cerumen Impaction, Tinnitus Bebo Panda MD Oct 25, 2017 14:33
== END 2017-10-25 12:07 | disposition home or self-care (01) ==
LOC: EMR 11:33
DX: H61.22 Impacted cerumen, left ear (principal); H93.12 Tinnitus, left ear
CPT/HCPCS: 69210; 99283

== ENCOUNTER 2017-12-26 08:37 | Emergency (ER) | payer MEDICARE, MEDICAID ==
[~2017-12-26] VITALS: Ht 170.2 cm; Wt 47.6 kg
[~2017-12-26 08:37] MED LIST changes: +BENADRYL25 MG ORAL; +DEBROX15 M1 LEFT EAR
[2017-12-26] MEDS ORDERED: DEBROX15 M1 LEFT EAR (09:02)
[2017-12-26 09:06] VITALS: BP 113/74
--- NOTE | 2017-12-26 13:17 | Emergency Room Report ---
History of Present Illness General Chief Complaint: General Complaint Source: Patient Present Illness HPI 72-year-old female presents ED complaining of ringing sensation in her left ear. States it has been there for many months. Was told that she has "tinnitus ". Pain is dull, 6 out of 10, nonradiating. Denies fevers or chills. Denies cough. Denies sick contacts or recent travel. No other aggravating relieving factors. Denies any other associated symptoms Allergies: Coded Allergies: No Known Allergies (Unverified , 09/04/12) Patient History Past Medical History: psych hx Past Surgical History: none Pertinent Family History: none Social History: Denies: smoking, alcohol use, drug use Now: No Immunizations: UTD Reviewed Nursing Documentation: PMH: Agreed; PSxH: Agreed Nursing Documentation-PMH Past Medical History: No History, Except For Hx Cardiac Problems: No - Thyroid disorder Hx Hypertension: No Hx Pacemaker: No Hx Asthma: No Hx COPD: No Hx Diabetes: No Hx Cancer: No Hx Gastrointestinal Problems: No Hx Dialysis: No History Of Psychiatric Problem: Yes Hx Neurological Problems: No Hx Cerebrovascular Accident: No Hx Seizures: No Review of Systems All Other Systems: negative except mentioned in HPI Physical Exam Vital Signs Date Time Temp Pulse Resp B/P (MAP) Pulse Ox O2 Delivery O2 Flow Rate FiO2 12/26/17 08:41 98.2 81 20 113/74 99 Room Air Sp02 EP Interpretation: reviewed, normal General Appearance: no apparent distress, alert, GCS 15, non-toxic Head: normocephalic Eyes: bilateral eye normal inspection, bilateral eye PERRL ENT: hearing grossly normal, normal pharynx, no angioedema, normal voice, other - L ear cerumen impaction. Neck: full range of motion, supple/symm/no masses Respiratory: normal inspection Cardiovascular #1: normal inspection Gastrointestinal: normal inspection Rectal: deferred Genitourinary: no CVA tenderness Musculoskeletal: normal inspection Neurologic: alert, oriented x3, responsive, motor strength/tone normal, sensory intact, speech normal Psychiatric: normal inspection Skin: normal inspection Lymphatic: normal inspection Medical Decision Making Diagnostic Impression: Primary Impression: Impacted cerumen Qualified Codes: H61.22 - Impacted cerumen, left ear Additional Impression: Tinnitus Qualified Codes: H93.12 - Tinnitus, left ear ER Course Hospital Course 72 yo F presents to ED c/o L ear ringing, pain Differential diagnoses include: TM perforation, otitis externa, otitis media, vestibulitis/labryntitis Clinical course Patient placed on stretcher. After initial history, physical exam reveals a female in no acute distress. unable to visualize L TM because of cerumen impaction. Discussed findings with patient. We'll discharge with carbamide. Patient states she will follow-up with her ENT for the tendinitis. Diagnosis - tinnitus, impacted cerumen Stable and discharged to home with Rx Carbamide. Followup with PMD. Return to ED if symptoms recur or worsen Last Vital Signs Date Time Temp Pulse Resp B/P (MAP) Pulse Ox O2 Delivery O2 Flow Rate FiO2 12/26/17 09:06 98.2 81 20 113/74 99 Room Air Status: improved Disposition: HOME, SELF-CARE Condition: Stable Scripts Carbamide Peroxide (DEBROX) 15 Ml Drops 5 DROP LEFT EAR TWICE A DAY for 4 Days, ML 0 Refills Prov: Darren Winter MD 12/26/17 Referrals: [facility],REFERRING (PCP) Patient Instructions: Cerumen Impaction Darren Winter MD Dec 26, 2017 13:17
== END 2017-12-26 09:06 | disposition home or self-care (01) ==
LOC: EMR 09:01
DX: H61.22 Impacted cerumen, left ear (principal); H93.12 Tinnitus, left ear
CPT/HCPCS: 99282

== ENCOUNTER 2019-07-12 23:09 | Emergency (ER) | payer MEDICARE, MEDICAID ==
[~2019-07-12] VITALS: Ht 172.7 cm; Wt 45.4 kg
[2019-07-12 23:15] VITALS: BP 160/90
--- NOTE | 2019-07-12 23:19 | NUR ---
ED Nurse Note: Pt brought in by [facility] from home c/o headache and generalized weakness for several days. VSS, pt A&Ox4, placed on monitor technician, ERMD at bedside, ekg done
[2019-07-12] MEDS ORDERED: ASPIR 8181 MG ORAL (23:21)
--- NOTE | 2019-07-12 23:21 | Emergency Room Report ---
History of Present Illness General Chief Complaint: Generalized Weakness Source: Patient, EMS Present Illness HPI This is a 74-year-[place] [facility] She has a history of hyperlipidemia and "mild" stroke before. No residual deficit. She presents with complaint of headache and palpitation. Onset today. Intermittently. Pain in her head is throbbing in nature. She said her heart is beating fast. No nausea no vomiting. No fever chills. No chest pain. Nothing made it better. Nothing made it worse. Has not take anything for this. No focal deficit. It is 9 out of 10. Allergies: Coded Allergies: No Known Allergies (Unverified , 09/04/12) COVID-19 Screening Contact w/high risk pt: No Recent Travel to affected area: No Experienced COVID-19 symptoms?: No COVID-19 Testing performed CIVIL CELEBRANT: No Patient History Past Medical History: see triage record, old chart reviewed, CVA/TIA Past Surgical History: none Pertinent Family History: none Social History: Denies: smoking Now: No Immunizations: other Reviewed Nursing Documentation: PMH: Agreed; PSxH: Agreed Nursing Documentation-PMH Hx Cardiac Problems: No Hx Hypertension: No Hx Pacemaker: No Hx Asthma: No Hx COPD: No Hx Diabetes: No Hx Cancer: No Hx Gastrointestinal Problems: No Hx Dialysis: No History Of Psychiatric Problem: No Hx Neurological Problems: No Hx Cerebrovascular Accident: Yes Hx Seizures: No Review of Systems Eye: Denies: eye pain, blurred vision ENT: Denies: ear pain, nose congestion, throat swelling Respiratory: Denies: cough, shortness of breath Cardiovascular: Reports: palpitations; Denies: chest pain Gastrointestinal: Denies: abdominal pain, diarrhea, nausea, vomiting Musculoskeletal: Denies: back pain, joint pain Skin: Denies: rash Neurological: Reports: headache; Denies: numbness Endocrine: Denies: increased thirst, increased urine Hematologic/Lymphatic: Denies: easy bruising All Other Systems: negative except mentioned in HPI Physical Exam Vital Signs Date Time Temp Pulse Resp B/P (MAP) Pulse Ox O2 Delivery O2 Flow Rate FiO2 07/12/19 23:07 98.2 88 16 160/90 (113) 100 Room Air Vitals with high blood pressure Sp02 EP Interpretation: reviewed, normal General Appearance: well appearing, no apparent distress, alert, thin Head: normocephalic, atraumatic Eyes: bilateral eye PERRL, bilateral eye EOMI ENT: hearing grossly normal, normal pharynx Neck: full range of motion, supple, no meningismus Respiratory: chest non-tender, lungs clear, normal breath sounds Cardiovascular #1: regular rate, rhythm, no murmur Gastrointestinal: normal bowel sounds, non tender, no mass, no organomegaly, no bruit, non-distended Musculoskeletal: back normal, normal range of motion, gait/station normal Neurologic: alert, oriented Psychiatric: anxious Medical Decision Making Diagnostic Impression: Primary Impression: Headache Qualified Codes: R51 - Headache Additional Impression: Palpitations ER Course Presents with headache and palpitation. She appeared to be anxious. She felt better after. No evidence of any intracranial bleed, CVA/TIA or neoplastic process. Heart rate has been in a normal sinus rhythm. Blood pressure improved. Will discharge back to facilities. EKG Diagnostic Results Rate: normal Rhythm: NSR ST Segments: no acute changes Rhythm Strip Diag. Results EP Interpretation: yes Rate: 85 Rhythm: NSR, no PVC's, no ectopy Chest X-Ray Diagnostic Results Chest X-Ray Diagnostic Results : Chest X-Ray Ordered: Yes # of Views/Limited/Complete: 1 View Indication: Chest Pain EP Interpretation: Yes Interpretation: no consolidation, no effusion, no pneumothorax, no acute cardiopulmonary disease Impression: No acute disease Electronically Signed by: Marcio Price MD CT/MRI/US Diagnostic Results CT/MRI/US Diagnostic Results : Imaging Test Ordered: CT head Impression Read by radiologist. Negative. Last Vital Signs Date Time Temp Pulse Resp B/P (MAP) Pulse Ox O2 Delivery O2 Flow Rate FiO2 07/12/19 23:07 98.2 88 16 160/90 (113) 100 Room Air Status: improved Disposition: HOME, SELF-CARE Condition: Stable Scripts Ibuprofen* (ADVIL*) 200 Mg Capsule 400 MG ORAL Q6H, #30 CAP Prov: Marcio Price MD 07/13/19 Additional Instructions: Follow-up with your doctor in 7 days. Return if symptoms worsen. Marcio Price MD July 12, 2019 23:21
[2019-07-12] MEDS ORDERED: Ketorolac 30mg Inj IV ONE (23:30)
[2019-07-12 23:34] LABS: BASOPHILS % (AUTO) 0.9 % (0.0-2.0); EOSINOPHILS % (AUTO) 0.7 % (0.0-3.0); HEMATOCRIT 36.5 % (37.0-47.0); HEMOGLOBIN 13.3 G/DL (12.0-16.0); MEAN CORPUSCULAR VOLUME 87 FL (80-99); MONOCYTES % (AUTO) 6.2 % (1.0-10.0); NEUTROPHILS % (AUTO) 51.1 % (45.0-75.0); PLATELET COUNT 165 K/UL (150-450); RED BLOOD COUNT 4.18 M/UL (4.20-5.40); RED CELL DISTRIBUTION WIDTH 10.7 % (11.6-14.8); WHITE BLOOD COUNT 5.6 K/UL (4.8-10.8)
--- NOTE | 2019-07-12 23:35 | NUR ---
ED Nurse Note: PT to CT
[2019-07-12 23:45] LABS: ANION GAP 10 mmol/L (5-15); BLOOD UREA NITROGEN 16 mg/dL (7-18); CALCIUM 8.5 MG/DL (8.5-10.1); CARBON DIOXIDE 27 MMOL/L (21-32); CHLORIDE 105 MMOL/L (98-107); CREATININE 0.8 MG/DL (0.55-1.30); POTASSIUM 3.4 MMOL/L (3.5-5.1); SODIUM 142 MMOL/L (136-145)
[2019-07-12 23:50] LABS: ALANINE AMINOTRANSFERASE 23 U/L (12-78); ALBUMIN 3.5 G/DL (3.4-5.0); ALBUMIN/GLOBULIN RATIO 1.1 (1.0-2.7); ALKALINE PHOSPHATASE 45 U/L (46-116); ASPARTATE AMINO TRANSFERASE 15 U/L (15-37); BILIRUBIN,TOTAL 0.4 MG/DL (0.2-1.0)
--- NOTE | 2019-07-12 23:50 | NUR ---
ED Nurse Note: Pt back from CT
--- NOTE | 2019-07-13 00:25 | Diagnostic Imaging Report ---
EXAM: CT Head Without Intravenous Contrast CLINICAL HISTORY: PAIN TECHNIQUE: Axial computed tomography images of the head/brain without intravenous contrast. CTDI is 53 mGy and DLP is 1152 mGy-cm. One or more of the following dose reduction techniques were used: automated exposure control, adjustment of the mA and/or kV according to patient size, use of iterative reconstruction technique. COMPARISON: 09/03/2017 FINDINGS: Brain: Parenchymal volume loss. Nonspecific white matter hypoattenuation likely secondary to chronic microvascular ischemia. Cerebrovascular ASVD. No hemorrhage. Ventricles: Unremarkable. No ventriculomegaly. Bones/joints: Unremarkable. No acute fracture. Soft tissues: Unremarkable. Sinuses: Unremarkable as visualized. No acute sinusitis. Mastoid air cells: Unremarkable as visualized. No mastoid effusion. IMPRESSION: 1. No acute intracranial abnormality. 2. Mild chronic senescent findings above. 3. Otherwise unremarkable study.
[2019-07-13 00:59] LABS: APPEARANCE,URINE CLEAR; BILIRUBIN, URINE NEGATIVE (NEGATIVE); COLOR,URINE PALE YELLOW; GLUCOSE, URINE (UA) NEGATIVE (NEGATIVE); KETONES,URINE 1+ (NEGATIVE); LEUKOCYTE ESTERASE ,URINE 1+ (NEGATIVE); NITRITE,URINE NEGATIVE (NEGATIVE); PH,URINE 6 (4.5-8.0); PROTEIN,URINE NEGATIVE (NEGATIVE); UROBILINOGEN,URINE NORMAL MG/DL (0.0-1.0)
[2019-07-13] MEDS ORDERED: ADVIL200 M2 ORAL (01:25)
[2019-07-13 01:30] VITALS: BP 152/72
--- NOTE | 2019-07-13 02:35 | NUR ---
ED Nurse Note: Pt resting in bed with eyes closed, reports pain has lessened, will continue to monitor till transportation arrives.
[2019-07-13 03:30] VITALS: BP 141/82
[2019-07-13 04:30] VITALS: BP 152/72
--- NOTE | 2019-07-13 04:30 | NUR ---
ER DISCHARGE NOTE: Patient is cleared to be discharged per ERMD, pt is aox4, on room air, with stable vital signs. pt was given dc and prescription instructions, pt was able to verbalize understanding, pt id band and iv site removed without complications. pt is stable to be taken home via [facility]. pt took all belongings.
--- NOTE | 2019-07-13 10:51 | Diagnostic Imaging Report ---
Procedure: XRAY Chest 1v Reason for study: Chest pain Comparison films: 10/05/2012. FINDINGS: A single one view chest is obtained. Vascularity is normal. The lung gallagher are clear bilaterally. Cardiac and mediastinal silhouette are within normal limits. CP angles are sharp. The bony thorax appear unremarkable. IMPRESSION: NO ACUTE CARDIOPULMONARY DISEASE.
== END 2019-07-13 04:30 | disposition home or self-care (01) ==
LOC: EDBD 23:09 → EMR 23:50
DX: R51 Headache (principal); R00.2 Palpitations; Z86.73 Personal history of transient ischemic attack (TIA), and cerebral infarction without residual deficits
CPT/HCPCS: 36415; 70450; 71045; 80053; 81003; 84484; 85025; 93005; 96374; 99284; J1885; J7040

== ENCOUNTER 2019-12-29 19:49 | Inpatient (IN) | payer MEDICARE, MEDICAID ==
[~2019-12-29] VITALS: Ht 170.2 cm; Wt 54.4 kg
[~2019-12-29 19:49] MED LIST changes: +ADVIL200 M2 ORAL; +ASPIR 8181 MG ORAL
[2019-12-29 20:00] VITALS: BP 161/81
--- NOTE | 2019-12-29 20:00 | NUR ---
ED Nurse Note: Patient brought into ED from home by VINCE RA 26 for c/o palpitations. She states she was at home and palpitations lasted an hour then went away. Per VINCE, HR was within normal limits on scene and she was not tachy. She currently denies chest pain, fever, chills, SOB or headache. Patient has hx of early onset dementia but is aaox4. She notes forgetfullness. Patient connected to laboratory monitor and EKG being done bedside. She was placed in hospital gown and safety measures are in place.
--- NOTE | 2019-12-29 20:06 | Emergency Room Report ---
History of Present Illness General Chief Complaint: Chest Pain Source: Patient Present Illness HPI Disclaimer: Please note that this report is being documented using DRAGON technology. This can lead to erroneous entry secondary to incorrect interpretation by the dictating instrument. HPI: 74-year-old female history of stroke and dementia presents for evaluation of palpitations. Patient states she has been feeling rapid heart rate and pounding in her chest on and off of the past few days. Last minutes to hours. Sometimes associated with chest pressure other times not. She felt it while at rest prior to arrival. Is now resolved and she is in no discomfort. She denies shortness of breath, cough, fever, chills, weakness, lightheadedness, vertigo, abdominal pain, nausea, vomiting or diarrhea. Patient states because of her dementia she forgets to take her medications. No longer taking aspirin, Plavix or other antiplatelets. No prior history of arrhythmia according to patient. She lives alone. Denies thyroid dysfunction, alcohol or drug use. PMH: Dementia, CVA PSH: Reviewed Allergies: Denied Social Hx: Denies alcohol, tobacco or drug use Allergies: Coded Allergies: No Known Allergies (Unverified , 09/04/12) COVID-19 Screening Contact w/high risk pt: No Recent Travel to affected area: No Experienced COVID-19 symptoms?: No COVID-19 Testing performed GRID CASTER: Yes COVID-19 Screening: Negative COVID-19 COVID-19 Testing Source: INTERVENTIONIST 12/27/2019 Patient History Last Menstrual Period: UNK Now: No Nursing Documentation-PMH Past Medical History: No History, Except For Hx Cardiac Problems: Yes Hx Hypertension: No Hx Pacemaker: No Hx Asthma: No Hx COPD: No Hx Diabetes: No Hx Cancer: No Hx Gastrointestinal Problems: No Hx Dialysis: No Hx Neurological Problems: No Hx Cerebrovascular Accident: Yes Hx Seizures: No Review of Systems All Other Systems: negative except mentioned in HPI Physical Exam Vital Signs Date Time Temp Pulse Resp B/P (MAP) Pulse Ox O2 Delivery O2 Flow Rate FiO2 12/29/19 19:44 99.5 85 16 161/81 (107) 98 Room Air General: Awake and alert, no acute distress HEENT: NC/AT. EOMI. Cardiovascular: RRR. S1 and S2 normal. No murmur appreciated Resp: Normal work of breathing. No cough, wheezing or crackles appreciated Abdomen: Abdomen is soft, nondistended. Nontender Skin: Intact. No abrasions, laceration or rash over the exposed skin MSK: Normal tone and bulk. Moving all extremities. No obvious deformity. Neuro: Awake and alert. Mentating appropriately. Medical Decision Making Diagnostic Impression: Primary Impression: Palpitations Additional Impressions: Prolonged QT interval Chest pain ER Course Is a 74-year-old female presenting for evaluation of palpitations. Differential includes not limited to arrhythmia, electrolyte abnormality, angina, ACS, GERD, bronchitis, pneumonia among others. EKG is nonischemic but does show prolonged QTC 495 ms. Troponin is negative. Other labs within normal limits including TSH and magnesium. Patient remains chest pain-free. Believe patient requires cardiology evaluation and hospital admission at this time. Discussed with Dr. Mathew as he is the assigned hospitalist for [facility]. He has accepted her onto his service. Patient will be placed on telemetry for further monitoring and treatment. Laboratory Tests Test 12/29/19 20:00 White Blood Count 5.2 K/UL (4.8-10.8) Red Blood Count 3.99 M/UL (4.20-5.40) L Hemoglobin 12.9 G/DL (12.0-16.0) Hematocrit 38.9 % (37.0-47.0) Mean Corpuscular Volume 97 FL (80-99) Mean Corpuscular Hemoglobin 32.4 PG (27.0-31.0) H Mean Corpuscular Hemoglobin Concent 33.2 G/DL (32.0-36.0) Red Cell Distribution Width 12.0 % (11.6-14.8) Platelet Count 159 K/UL (150-450) Mean Platelet Volume 6.7 FL (6.5-10.1) Neutrophils (%) (Auto) 50.6 % (45.0-75.0) Lymphocytes (%) (Auto) 41.6 % (20.0-45.0) Monocytes (%) (Auto) 6.3 % (1.0-10.0) Eosinophils (%) (Auto) 0.6 % (0.0-3.0) Basophils (%) (Auto) 0.9 % (0.0-2.0) Sodium Level 140 MMOL/L (136-145) Potassium Level 3.7 MMOL/L (3.5-5.1) Chloride Level 106 MMOL/L (98-107) Carbon Dioxide Level 26 MMOL/L (21-32) Anion Gap 8 mmol/L (5-15) Blood Urea Nitrogen 14 mg/dL (7-18) Creatinine 0.8 MG/DL (0.55-1.30) Estimated Glomerular Filtration Rate > 60 mL/min (>60) Glucose Level 102 MG/DL (74-106) Calcium Level 8.4 MG/DL (8.5-10.1) L Magnesium Level 2.1 MG/DL (1.8-2.4) Total Bilirubin 0.4 MG/DL (0.2-1.0) Aspartate Amino Transferase (AST) 18 U/L (15-37) Alanine Aminotransferase (ALT) 15 U/L (12-78) Alkaline Phosphatase 45 U/L (46-116) L Troponin I 0.000 ng/mL (0.000-0.056) Pro-B-Type Natriuretic Peptide 40 pg/mL (0-125) Total Protein 6.6 G/DL (6.4-8.2) Albumin 3.5 G/DL (3.4-5.0) Globulin 3.1 g/dL Albumin/Globulin Ratio 1.1 (1.0-2.7) Thyroid Stimulating Hormone (TSH) 0.428 uiU/mL (0.358-3.740) Serum Alcohol < 3 mg/dL EKG Diagnostic Results Troponin ordered: Yes When was troponin ordered?: Dec 29, 2019 EKG Time: 20:06 Rate: normal Rhythm: NSR ST Segments: no acute changes Other Impression Sinus rhythm, normal axis, no ST segment changes. Prolonged QTC at 495 ms. Anterior Q waves. ASA given to the pt in ED: Yes Rhythm Strip Diag. Results Rhythm Strip Time: 20:06 EP Interpretation: yes Rate: 75 Rhythm: NSR, no PVC's, no ectopy Chest X-Ray Diagnostic Results Chest X-Ray Diagnostic Results : Chest X-Ray Ordered: Yes # of Views/Limited/Complete: 1 View Indication: Chest Pain EP Interpretation: Yes Interpretation: no consolidation, no effusion, no pneumothorax, no acute cardiopulmonary disease Impression: No acute disease Electronically Signed by: Electronically signed by Dr. Micah Friend MD Last Vital Signs Date Time Temp Pulse Resp B/P (MAP) Pulse Ox O2 Delivery O2 Flow Rate FiO2 12/29/19 19:44 99.5 85 16 161/81 (107) 98 Room Air Disposition: ADMITTED INPATIENT Condition: Stable Micah Friend MD Dec 29, 2019 20:06
[2019-12-29 20:29] LABS: BASOPHILS % (AUTO) 0.9 % (0.0-2.0); EOSINOPHILS % (AUTO) 0.6 % (0.0-3.0); HEMATOCRIT 38.9 % (37.0-47.0); HEMOGLOBIN 12.9 G/DL (12.0-16.0); LYMPHOCYTES % (AUTO) 41.6 % (20.0-45.0); MEAN CORPUSCULAR VOLUME 97 FL (80-99); MONOCYTES % (AUTO) 6.3 % (1.0-10.0); NEUTROPHILS % (AUTO) 50.6 % (45.0-75.0); PLATELET COUNT 159 K/UL (150-450); RED BLOOD COUNT 3.99 M/UL (4.20-5.40); WHITE BLOOD COUNT 5.2 K/UL (4.8-10.8)
--- NOTE | 2019-12-29 20:31 | Diagnostic Imaging Report ---
EXAM: XR Chest, 1 View CLINICAL HISTORY: CP TECHNIQUE: Frontal view of the chest. COMPARISON: None FINDINGS: Lungs: The lungs are hyperinflated. There is no confluent airspace disease. Pleural space: There are no pleural effusions or pneumothoraces. Heart: Unremarkable. No cardiomegaly. Mediastinum: Unremarkable. Bones/joints: Unremarkable. IMPRESSION: No acute cardiopulmonary process. Questionable COPD.
[2019-12-29 20:41] LABS: ANION GAP 8 mmol/L (5-15); BLOOD UREA NITROGEN 14 mg/dL (7-18); CALCIUM 8.4 MG/DL (8.5-10.1); CARBON DIOXIDE 26 MMOL/L (21-32); CHLORIDE 106 MMOL/L (98-107); CREATININE 0.8 MG/DL (0.55-1.30); POTASSIUM 3.7 MMOL/L (3.5-5.1); SODIUM 140 MMOL/L (136-145)
[2019-12-29 20:53] LABS: ALANINE AMINOTRANSFERASE 15 U/L (12-78); ALBUMIN 3.5 G/DL (3.4-5.0); ALBUMIN/GLOBULIN RATIO 1.1 (1.0-2.7); ALKALINE PHOSPHATASE 45 U/L (46-116); ASPARTATE AMINO TRANSFERASE 18 U/L (15-37); BILIRUBIN,TOTAL 0.4 MG/DL (0.2-1.0)
--- NOTE | 2019-12-29 22:00 | NUR ---
ED Nurse Note: Patient is unable to urinate at this time; refused straight cath. ERMD made aware and is ok with patient being sent to tele unit without obtaining urine.
[2019-12-29 22:15] VITALS: BP 113/64
--- NOTE | 2019-12-29 22:30 | NUR ---
ED Nurse Note: Report given to JESUSITA Leyva.
--- NOTE | 2019-12-29 22:45 | NUR ---
ED Nurse Note: Patient is stable for transfer to tele unit at this time. She is awake and alert, breathing is normal. Patient taken to unit via gurney by edmond and RN while connected to monitoring and evaluation advisor. She took all belongings with her. IV is patent. Vital signs are stable as charted.
[2019-12-29 22:50] VITALS: BP 112/60
--- NOTE | 2019-12-29 22:50 | NUR ---
NURSE NOTES: Received patient from [facility] via [employer]. Patient is awake on bed, alert and oriented x 4. Belongings list checked and verified. Oriented to room and telemetry unit. Place monitoring coordinator and shows sinus rhythm with HR of 69. On room air, sating 95% and denies any SOB nor chest pain at this time. IV site is on right forearm, g-22 saline lock that is patent and intact. Safety measures are in place, bed in lowest and locked position, side rails up x 2, call light button and bedside table within reach, instructed to call for any assistance needed. Will call MD for admission orders.
--- NOTE | 2019-12-29 23:05 | NUR ---
NURSE NOTES: Called Dr. Masters and inform him about this admission, received an orders, will carry out.
[2019-12-30] VITALS: BP 118/65
[2019-12-30 04:00] VITALS: BP 109/56
--- NOTE | 2019-12-30 07:25 | NUR ---
NURSE HAND-OFF REPORT: Important Events on Shift: Patiemnt has been resting well comfortably, with no complaints the who shift. Patient Status: Patient is awake on bed, in stable condition. Plan of care endorsed. Diet: Cardiac diet Pending Orders: troponin @ 1200 & 2000 Pending Results/Labs: troponin result that was done @ 0400 Pending MD notification:none Latest Vital Signs: Temperature 98.8 , Pulse 66 , B/P 109 /56 , Respiratory Rate 16 , O2 SAT 100 , Room Air, O2 Flow Rate . Vital Sign Comment: stable EKG Rhythm: Sinus Rhythm Rhythm change?: N MD Notified?: - MD Response: Latest Carlos Fall Score: 20 Fall Risk: Low Risk Safety Measures: Call light Within Reach, Bed Alarm Zone 1, Side Rails Side Rails x2, Bed position . Fall Precautions: Yellow Socks Yellow Gown Door Sign Patient Fall Education Report given to JESUSITA Domingo.
--- NOTE | 2019-12-30 07:26 | NUR ---
NURSE NOTES: Received report from JESUSITA purcell. Pt is sitting up high fowlers eating breakfast. Pt is stable on RA, no s/s or complaints of distress at this time. Pt IV RFA22g, asymptomatic and intact. Pt expresses concern for her apartment at this time and that she has no mcqueen, to further inquire at a later time. Pt lives alone, to speak w/ dr chen regarding during rounds. pt bed low and locked, call light in reach, bed alarm on. Pt verbalized understanding to call for help.
[2019-12-30 08:00] VITALS: BP 107/53
--- NOTE | 2019-12-30 08:36 | NUR ---
NURSE NOTES: Pt found in hallway walking towards elevator and when inquired where she was going she said she was going home because she was concerned for the wellbeing of her apartment because she thinks paramedics left the mcqueen in the door. Pt expresses desire to go AMA, Pt education provided. Spoke to Pt to allow me to try to reach other resources first before going ama. Pt agreed. called police department, another police department who transferred me to fire department to inquire about Pt apartment. they said they wi;; send someone to check. awaiting call back from fire department.
--- NOTE | 2019-12-30 08:46 | NUR ---
NURSE NOTES: Pt SCDs on. pt stable
[2019-12-30] MEDS: Aspirin EC 81mg tab ORAL SCH (09:19)
--- NOTE | 2019-12-30 09:22 | NUR ---
NURSE NOTES: Firefighters brought mcqueen to [facility]. Picked up from ER entrance by GABY Rogel. Pt given mcqueen. Pt put mcqueen on keychain. Pt verbalized no intention of going AMA.
--- NOTE | 2019-12-30 11:12 | NUR ---
CASE MANAGEMENT:INITIAL REVIEW 74 YR OLD FEMALE BIBA FROM HOME CC;CHEST PAIN SI;PALPITATIONS. CHEST PAIN. PROLONGED QT INTERVAL. 99.5 85 16 161/81 95% ON RA LABS ~ WNL CXR ~ No acute cardiopulmonary process. Questionable COPD. IS;ASA ADMITTED TO TELE TELE STATUS DCP;FROM HOME
[2019-12-30 12:00] VITALS: BP 112/60
--- NOTE | 2019-12-30 13:30 | NUR ---
NURSE NOTES: Pt resting in bed, stable.. no s/s or complaints of distress or pain at this moment. pt is watching TV. bed low and locked, call light in reach and bed alarm on. Pt verbalized understanding to call for help. SCDs on.
--- NOTE | 2019-12-30 13:40 | NUR ---
NURSE NOTES: Pt inquiring about going home, says that Dr Masters said she can go home today. No d/c orders since then 1100. Left message, awaiting call back.
--- NOTE | 2019-12-30 14:00 | History and Physical Report ---
DATE OF ADMISSION: 12/29/2019 HISTORY OF PRESENT ILLNESS: This is a 74-year-old female with underlying previous CVA who came to the hospital with palpitations. The patient reports that she has been having palpitations for the last several days. She states she previously had this several months ago at which point she was admitted and told she was dehydrated. The patient states that she has no other medical issues. PAST MEDICAL HISTORY: Dementia, CVA. PAST SURGICAL HISTORY: None. ALLERGIES: None. HOME MEDICATIONS: The patient reports that she takes aspirin only. No other medications reported. REVIEW OF SYSTEMS: Denies any headaches, hematemesis, melena, hematochezia, night sweats, weight loss. PHYSICAL EXAMINATION: GENERAL: Reveals a 74-year-old female. VITAL SIGNS: Blood pressure 107/50, heart rate 54, respiratory rate 18, afebrile. HEENT: Unremarkable. CHEST: Clear breath sounds. ABDOMEN: Soft. NEUROLOGIC: Nonfocal. LABORATORY DATA: Lab testing shows normal CBC and BMP. Troponin is negative x2. Toxicology is negative. IMAGING STUDIES: X-ray chest was obtained, which was negative for any pathology. The patient's telemetry overnight has been normal. IMPRESSION: 1. Palpitations. 2. CVA. 3. Dementia. DISCUSSION: At this point, I do not see further need for the patient stay in the hospital; however, concerned about ability to take care of herself. We will consult with Systems Analyst. Discharge if cleared by Systems Analyst. Juan Masters M.D. DR: Amina JOB#: [id number] CC:
--- NOTE | 2019-12-30 14:32 | NUR ---
NURSE NOTES: Dr Masters called back regarding Pt D/C. Pt not D/C until they can find safe d/c bc pt lives home alone. Pt understood. Pt RFA IV does not flush. IV removed, no bleeding, catheter intact. Pt new IV placed on LFA 22g SL, asymptomatic and intact. Pt tolerated well. pt stable.
--- NOTE | 2019-12-30 15:46 | Cardiology Report ---
APPROVED REPORT EKG Measurement Heart [id number] VT [id number] <Conclusion> Normal sinus rhythm Possible Left atrial enlargement Anterior infarct, age undetermined Abnormal ECG
[2019-12-30 16:00] VITALS: BP 102/71
--- NOTE | 2019-12-30 19:17 | NUR ---
NURSE HAND-OFF REPORT: Important Events on Shift: Ok to d/c after social media editor clears her per Dr Masters, Pt tried to go AMA this morning Patient Status: fc, stable Diet: cardiac diet Pending Orders: Pending Results/Labs: Pending MD notification: SB 58 Latest Vital Signs: Temperature 96.7 , Pulse 67 , B/P 102 /71 , Respiratory Rate 18 , O2 SAT 100 , Room Air, O2 Flow Rate . Vital Sign Comment: EKG Rhythm: Sinus Rhythm Rhythm change?: N MD Notified?: - MD Response: Latest Carlos Fall Score: 20 Fall Risk: Low Risk Safety Measures: Call light Within Reach, Bed Alarm Zone 1, Side Rails Side Rails x2, Bed position Low and Locked. Fall Precautions: Yellow Socks Yellow Gown Door Sign Patient Fall Education Report given to estevan Calloway
[2019-12-30 20:00] VITALS: BP 130/75
--- NOTE | 2019-12-30 20:00 | NUR ---
NURSE NOTES: RECEIVED PATIENT LYING IN BED, AWAKE, ALERT/ORIENTED X4, VERY TALKATIVE/PLEASANT, VERBALLY RESPONSIVE, DENIES PAIN. NO SIGNS AND SYMPTOMS OF ACUTE CARDIO RESPIRATORY DISTRESS/SHORTNESS OF BREATH, DENIES CHEST PAIN, NO PERIPHERAL EDEMA NOTED. SINUS RHYTHM ON FISHER. NOTED WITH LIFE ALERT AROUND HER NECK. ABDOMEN SOFT/NON DISTENDED/NON TENDER, DENIES N/V/D, BSC NOTED. ASSISTED WITH COMFORT CARE. SIDE RAILS UP X3, BED IN LOWEST POSITION FOR SAFETY, BED ALARM ACTIVATED FOR PREVENTIVE MEASURES. ENCOURAGED PATIENT TO UTILIZE CALL LIGHT FOR ASSISTANCE, VERBALIZED UNDERSTANDING. CONTINUE WITH CURRENT PLAN OF CARE. NAD.
[2019-12-31] VITALS: BP 104/64
[2019-12-31 04:00] VITALS: BP 119/68
--- NOTE | 2019-12-31 07:15 | NUR ---
NURSE NOTES: Received report from JESUSITA Diaz. Pt is resting in bed, sitting up and eating breakfast. Pt is stable on RA w/ no complaints or s/s of distress. Pt LFA 22g SL. Pt bed low and locked, call light in reach and bed alarm on. Pt verbalized understanding to call for help.
--- NOTE | 2019-12-31 07:32 | NUR ---
NURSE HAND-OFF REPORT: Important Events on Shift:[UNEVENTFUL NIGHT, AMBULATED IN HALLWAY WITH NURSE-PATIENT NOTED WITH LIFE ALERT AROUND NECK] Patient Status: [STABLE, AFEBRILE] Diet: [CARDIAC] Pending Orders: [N/A] Pending Results/Labs:[] Pending MD notification:[] Latest Vital Signs: Temperature 98.3 , Pulse 64 , B/P 119 /68 , Respiratory Rate 18 , O2 SAT 98 , Room Air, O2 Flow Rate . Vital Sign Comment: [STABLE, AFEBRILE] EKG Rhythm: Sinus Rhythm Rhythm change?: N MD Notified?: - MD Response: Latest Carlos Fall Score: 20 Fall Risk: Low Risk Safety Measures: Call light Within Reach, Bed Alarm Zone 1, Side Rails Side Rails x2, Bed position Low and Locked. Fall Precautions: Yellow Socks Yellow Gown Door Sign Patient Fall Education Report given to [JESUSITA SHEPPARD].
[2019-12-31] MEDS: Aspirin EC 81mg tab ORAL SCH (07:52)
[2019-12-31 08:00] VITALS: BP 123/48
--- NOTE | 2019-12-31 10:18 | Pulmonology Progress Note ---
Subjective Interval Events: None new Constitutional: Reports: no symptoms HEENT: Repors: no symptoms Respiratory: Reports: no symptoms Cardiovascular: Reports: no symptoms Gastrointestinal/Abdominal: Reports: no symptoms Genitourinary: Reports: no symptoms Allergies: Coded Allergies: No Known Allergies (Unverified , 09/04/12) Objective Last 24 Hour Vital Signs Date Time Temp Pulse Resp B/P (MAP) Pulse Ox O2 Delivery O2 Flow Rate FiO2 12/31/19 09:00 Room Air 12/31/19 08:00 74 12/31/19 08:00 96.8 49 20 123/48 (73) 98 12/31/19 04:00 98.3 72 18 119/68 (85) 98 12/31/19 04:00 64 12/31/19 00:00 97.9 66 18 104/64 (77) 100 12/31/19 00:00 61 12/30/19 21:00 Room Air 12/30/19 20:00 70 12/30/19 20:00 98.2 70 18 130/75 (93) 98 12/30/19 16:00 67 12/30/19 16:00 96.7 59 18 102/71 (81) 100 12/30/19 12:00 98.6 74 19 112/60 (77) 100 12/30/19 12:00 68 Intake and Output 12/30/19 12/31/19 19:00 07:00 Intake Total 800 ml 360 ml Balance 800 ml 360 ml Intake Oral 800 ml 360 ml # Voids 3 3 General Appearance: no acute distress HEENT: normocephalic Respiratory: chest wall non-tender, lungs clear Cardiovascular: normal peripheral pulses Abdomen: normal bowel sounds Laboratory Tests 12/30/19 11:48: Troponin I 0.003 12/31/19 06:00: Urine Opiates Screen Negative, Urine Barbiturates Screen Negative, Phencyclidine (PCP) Screen Negative, Urine Amphetamines Screen Negative, Urine Benzodiazepines Screen Negative, Urine Cocaine Screen Negative, Urine Marijuana (THC) Screen Negative Current Medications Medications (Trade) Dose Ordered Sig/Jerrod Route PRN Reason Start Time Stop Time Status Last Admin Dose Admin Aspirin (Ecotrin) 81 mg DAILY ORAL 12/30/19 09:00 02/13/20 08:59 12/31/19 07:52 Assessment/Plan Assessment/Plan IMPRESSION: 1. Palpitations. 2. CVA. 3. Dementia. DISCUSSION: At this point, I do not see further need for the patient stay in the hospital; however, I am concerned about ability to take care of herself. Await consult with Perioperative Manager. Discharge if cleared by Perioperative Manager. Called and discussed with emergency contact listed in chart; a friend who does not know too much about patient. Juan Masters M.D. Juan Masters MD Dec 31, 2019 10:18
--- NOTE | 2019-12-31 11:35 | NUR ---
NURSE NOTES: pt IV removed, IV catheter intact, no bleeding. pt tele monitor and wristband removed. belongings accounted for and signed. pt education provided and verbalized understanding. Pt paper education given. clerical warehouse worker saw Pt and cleared to go home. Board and care options given. pt verbalized interest and understanding. Pt taken down to lobby via wheelchair. Pt was met by friend, virgil to take her home via private vehicle. at time of d/c pt was stable w/ no s/s or complaints of distress on RA. pt discharged without incident.
--- NOTE | 2019-12-31 13:46 | NUR ---
Social Work This SW received a consult to assist with a home safety evaluation. Patient appears alert, oriented x4, doing crossword puzzles in her room and remains independent with ADLs, ambulation, does not use any DME. Patient explains she lives alone in section 8 housing-Nursing Home and has an elevator to get into her home. Patient expressing she might need Board and Care or Assisted Living, stating she cannot clean her home and forgetful at times. Patient receives $950.00 per month, but stating she has spent all of this, for the cost of living of this month. This SW provided list of contacts for Board and Care placement, starting at the beginning of next month. Patient stating she does not have family, while her friend, Cici Farrar ([phone]) can assist her with getting her groceries, as need, while she no longer has her SS caregiver. No other needs or concerns present at this time. Patient stating she can follow up with placement into Board and Care, when she has her next check (next month). Nursing also explains patient has been showing safety here, i.e level of independence, alert/oriented x4; planning to discharge back to her home today.
--- NOTE | 2019-12-31 14:35 | NUR ---
LEGISLATIVE AIDE NOTES CLINICALS REVIEWED AND FAXED TO [facility]. Addendum: 12/31/19 at 1437 by LALITHA NEWELL RN CM PLEASE DISREGARD ABOVE NOTE, DOCUMENTED IN ERROR. CLINICALS FAXED TO [facility].
--- NOTE | 2020-01-02 12:34 | Discharge Summary ---
Discharge Summary Discharge Summary _ DATE OF ADMISSION: 12/29/2019 DATE OF DISCHARGE: 12/31/2019 DISCHARGED BY: Dr. Masters REASON FOR ADMISSION: 74 years old female with past medical history of CVA, dementia, presented to emergency department with palpitations for the last several days. Per patient , she had previous similar episode . At that time she was admitted to the hospital and was told that she was dehydrated. Upon evaluation blood pressure was slightly elevated, pulse oximetry was stable on room air. Laboratory work-up revealed no leukocytosis, stable hemoglobin, hematocrit and platelet count. Stable electrolytes and renal parameters. Glucose 102. TSH within normal limits. Magnesium stable Troponin negative. EKG revealed sinus rhythm, no acute ischemic changes. Serum alcohol less than 3. Chest x-ray revealed no acute cardiopulmonary pathology. Patient subsequently admitted to telemetry floor. HOSPITAL COURSE: Patient admitted to telemetry floor. Serial troponin were negative. Telemetry revealed sinus rhythm no acute ischemic changes . Patient was ruled out for acute myocardial infarction. Antiplatelet therapy with aspirin provided Pulse oximetry remained stable on room air. Blood pressure stabilized. plant and equipment worker seen and evaluated patient in regards to home safety evaluation. Patient lives in section 8 housing /fpc -alone. Patient stated that her friend helps her with the grocery, while she no longer has her [facility] caregiver. Patient was provided with a list of Board and Care facility, plant and equipment worker cleared patient for discharge. Patient subsequently was discharged home. FINAL DIAGNOSES: Palpitations- resolved CVA Dementia DISCHARGE MEDICATIONS: See Medication Reconciliation list. DISCHARGE INSTRUCTIONS: Patient was discharged home. Follow-up with a primary care provider in 1 week. I have been assigned to dictate discharge summary for this account. I was not involved in the patient's management. Adriana Brown NP Jan 02, 2020 12:33
== END 2019-12-31 11:36 | disposition home or self-care (01) | DRG 310 ==
LOC: EDBD 19:49 → EMR 20:38 → 2E 21:13 → EDBEDREQ 22:14
DX: R00.2 Palpitations (principal); F03.90 Unspecified dementia, unspecified severity, without behavioral disturbance, psychotic disturbance, mood disturbance, and anxiety; Z86.73 Personal history of transient ischemic attack (TIA), and cerebral infarction without residual deficits; Z79.82 Long term (current) use of aspirin
CPT/HCPCS: 36415; 71045; 80053; 80307; 83735; 83880; 84443; 84484; 85025; 93005; 99285; G0480

== ENCOUNTER 2020-01-26 12:51 | Emergency (ER) | payer MEDICARE, MEDICAID ==
[~2020-01-26] VITALS: Ht 170.2 cm; Wt 40.8 kg
--- NOTE | 2020-01-26 13:05 | NUR ---
ED Nurse Note: CT called by ravi MC. EVS called for terminal cleaning of CT.
--- NOTE | 2020-01-26 13:05 | NUR ---
ED Nurse Note: Pt ambulated to ED from home d/t generalized weakness started today. Pt is AOx4, calm and cooperative to care, VSS, on RA, afebrile on triage, pt able to speak in full sentences, good motor function on bilateral upper and lower extremities, symmetrical face noted. Pt was placed on bed and gown; hooked to monitor, ERMD at bedside. Accucheck 101mg/dl.
--- NOTE | 2020-01-26 13:14 | Emergency Room Report ---
History of Present Illness General Chief Complaint: Generalized Weakness Source: Patient (Micah Friend MD) Present Illness HPI Disclaimer: Please note that this report is being documented using [employer] technology. This can lead to erroneous entry secondary to incorrect i nterpretation by the dictating instrument. HPI: 74-year-old female prior history of CVA presents for evaluation of weakness and slurred speech. Patient states she was with a friend approximately 1 hour ago around noon when her friend noticed she was slurring certain words. It was not a consistent slurred speech and appeared only to happen while the patient was speaking for long periods of time. Denies headache, vision changes, numbness, tingling, focal weakness. She states she felt generally weak and at the request of her friend came in for medical evaluation. She states she is no longer slurring her speech and symptoms lasted approximately 3 minutes. Reports a prior history of "mini strokes" for which she only takes aspirin. She states she is otherwise healthy and in her usual state of health. Denies any recent fever, chills, nasal congestion, chest pain, palpitations, shortness of breath, cough, nausea, vomiting, diarrhea, dysuria, hematuria. Lives independently. Denies changes in ability perform activities of daily living. Denies fall or injury. PMH: CVA without residual deficits PSH: D&C Allergies: Denied Social Hx: Quit tobacco and alcohol in 1980s (Micah Friend MD) Allergies: Coded Allergies: No Known Allergies (Unverified , 09/04/12) COVID-19 Screening Contact w/high risk pt: No Recent Travel to affected area: No Experienced COVID-19 symptoms?: No COVID-19 Testing performed HEEL SEAM RUBBER: No (Micah Friend MD) Nursing Documentation-PMH Past Medical History: No History, Except For Hx Cardiac Problems: Yes Hx Hypertension: No Hx Pacemaker: No Hx Asthma: No Hx COPD: No Hx Diabetes: No Hx Cancer: No Hx Gastrointestinal Problems: No Hx Dialysis: No Hx Neurological Problems: No Hx Cerebrovascular Accident: Yes Hx Seizures: No (Micah Friend MD) Review of Systems All Other Systems: negative except mentioned in HPI (Micah Friend MD) Physical Exam Vital Signs Date Time Temp Pulse Resp B/P (MAP) Pulse Ox O2 Delivery O2 Flow Rate FiO2 01/26/20 12:58 98.4 93 20 105/67 (80) 95 Room Air General: Awake and alert, no acute distress HEENT: NC/AT. EOMI. PERRLA. Visual gallagher are full. No nystagmus. Facial expressions are symmetrical. No facial droop. Cardiovascular: RRR. S1 and S2 normal. No murmur appreciated Resp: Normal work of breathing. No cough, wheezing or crackles appreciated Abdomen: Abdomen is soft, nondistended. Nontender Skin: Intact. No abrasions, laceration or rash over the exposed skin MSK: Normal tone and bulk. Moving all extremities. No obvious deformity. There is no drift in the upper or lower extremities bilaterally. Neuro: Awake and alert. Mentating appropriately. Oriented to self, place, location, situation. Facial expression symmetrical. No dysarthria, no ataxia on [id number] or [id number] testing. Sensation to light touch is intact over the upper and lower extremities. The patient has intact speech with good repetition, comprehension. Fund of knowledge is full. No aphasia, no neglect. NIH: 0 (Micah Friend MD) Medical Decision Making Diagnostic Impression: Primary Impression: Transient ischemic attack ER Course Is a 74-year-old female presenting for evaluation of brief episode of slurred speech and generalized weakness. Patient states her symptoms have resolved. She is ambulatory, no focal deficits, NIH is 0 on arrival. Awake, alert coherent speaking clearly. Concern for CVA, TIA, electrolyte abnormality, dehydration, UTI, occult infection, generalized weakness among others. Patient was sent for stat CT of the head given her history. No change from previous studies. Blood work preserved within normal limits aside from elevated lipid panel. Urinalysis is pending. Patient remains asymptomatic at this time, comfortable in bed. NIH score remains 0. Discussed admission with patient however she is hesitant stating she feels well enough now. Signed out to oncoming provider pending urinalysis and ultimate disposition. Laboratory Tests Test 01/26/20 13:19 White Blood Count 5.9 K/UL (4.8-10.8) Red Blood Count 3.85 M/UL (4.20-5.40) L Hemoglobin 12.6 G/DL (12.0-16.0) Hematocrit 36.7 % (37.0-47.0) L Mean Corpuscular Volume 95 FL (80-99) Mean Corpuscular Hemoglobin 32.7 PG (27.0-31.0) H Mean Corpuscular Hemoglobin Concent 34.3 G/DL (32.0-36.0) Red Cell Distribution Width 12.3 % (11.6-14.8) Platelet Count 169 K/UL (150-450) Mean Platelet Volume 6.7 FL (6.5-10.1) Neutrophils (%) (Auto) 64.4 % (45.0-75.0) Lymphocytes (%) (Auto) 28.3 % (20.0-45.0) Monocytes (%) (Auto) 6.2 % (1.0-10.0) Eosinophils (%) (Auto) 0.4 % (0.0-3.0) Basophils (%) (Auto) 0.7 % (0.0-2.0) Prothrombin Time 10.7 SEC (9.30-11.50) Prothrombin Time INR 1.0 (0.9-1.1) Activated Partial Thromboplast Time 22 SEC (23-33) L Sodium Level 142 MMOL/L (136-145) Potassium Level 3.7 MMOL/L (3.5-5.1) Chloride Level 107 MMOL/L (98-107) Carbon Dioxide Level 28 MMOL/L (21-32) Anion Gap 7 mmol/L (5-15) Blood Urea Nitrogen 16 mg/dL (7-18) Creatinine 0.7 MG/DL (0.55-1.30) Estimated Glomerular Filtration Rate > 60 mL/min (>60) Glucose Level 105 MG/DL (74-106) Calcium Level 8.4 MG/DL (8.5-10.1) L Phosphorus Level 4.2 MG/DL (2.5-4.9) Magnesium Level 2.0 MG/DL (1.8-2.4) Total Bilirubin 0.2 MG/DL (0.2-1.0) Aspartate Amino Transferase (AST) 14 U/L (15-37) L Alanine Aminotransferase (ALT) 18 U/L (12-78) Alkaline Phosphatase 45 U/L (46-116) L Troponin I 0.001 ng/mL (0.000-0.056) Total Protein 6.7 G/DL (6.4-8.2) Albumin 3.4 G/DL (3.4-5.0) Globulin 3.3 g/dL Albumin/Globulin Ratio 1.0 (1.0-2.7) Triglycerides Level 58 MG/DL (30-150) Cholesterol Level 223 MG/DL (< 200) H LDL Cholesterol 133 mg/dL (<100) H HDL Cholesterol 63 MG/DL (40-60) H Cholesterol/HDL Ratio 3.5 (3.3-4.4) Serum Alcohol 3 mg/dL (Micah Friend MD) ER Course Patient was endorsed to me by Dr. Friend. Patient had recent symptoms with some speech disturbance which was brief. Patient subsequently had return to normal. Patient denies any current symptoms. Patient was pending urinary testing and did not want to remain in the hospital. Laboratory testing was essentially unremarkable. (Virgil Calero MD) EKG Diagnostic Results Troponin ordered: Yes When was troponin ordered?: Jan 26, 2020 EKG Time: 13:18 Rate: normal Rhythm: NSR ST Segments: no acute changes Other Impression Sinus rhythm, normal axis, normal intervals, QTC 425 ms, no ST segment changes (Micah Friend MD) Rhythm Strip Diag. Results Rhythm Strip Time: 13:18 EP Interpretation: yes Rate: 70s Rhythm: NSR, no PVC's, no ectopy (Micah Friend MD) Last Vital Signs Date Time Temp Pulse Resp B/P (MAP) Pulse Ox O2 Delivery O2 Flow Rate FiO2 01/26/20 12:58 98.4 93 20 105/67 (80) 95 Room Air (Micah Friend MD) Micah Friend MD Jan 26, 2020 13:14 Virgil Calero MD Jan 26, 2020 15:58
[2020-01-26 13:30] VITALS: BP 105/67
--- NOTE | 2020-01-26 13:34 | NUR ---
ED Nurse Note: Pt was taken to CT, blood sent to lab.
[2020-01-26 13:38] LABS: BASOPHILS % (AUTO) 0.7 % (0.0-2.0); EOSINOPHILS % (AUTO) 0.4 % (0.0-3.0); HEMATOCRIT 36.7 % (37.0-47.0); HEMOGLOBIN 12.6 G/DL (12.0-16.0); LYMPHOCYTES % (AUTO) 28.3 % (20.0-45.0); MEAN CORPUSCULAR VOLUME 95 FL (80-99); MONOCYTES % (AUTO) 6.2 % (1.0-10.0); NEUTROPHILS % (AUTO) 64.4 % (45.0-75.0); PLATELET COUNT 169 K/UL (150-450); RED BLOOD COUNT 3.85 M/UL (4.20-5.40); RED CELL DISTRIBUTION WIDTH 12.3 % (11.6-14.8); WHITE BLOOD COUNT 5.9 K/UL (4.8-10.8)
--- NOTE | 2020-01-26 13:44 | NUR ---
ED Nurse Note: pt returned from ct on stable condition
[2020-01-26 13:52] LABS: ANION GAP 7 mmol/L (5-15); BLOOD UREA NITROGEN 16 mg/dL (7-18); CALCIUM 8.4 MG/DL (8.5-10.1); CARBON DIOXIDE 28 MMOL/L (21-32); CHLORIDE 107 MMOL/L (98-107); CREATININE 0.7 MG/DL (0.55-1.30); POTASSIUM 3.7 MMOL/L (3.5-5.1); SODIUM 142 MMOL/L (136-145)
[2020-01-26 13:58] LABS: ALANINE AMINOTRANSFERASE 18 U/L (12-78); ALBUMIN 3.4 G/DL (3.4-5.0); ALKALINE PHOSPHATASE 45 U/L (46-116); ASPARTATE AMINO TRANSFERASE 14 U/L (15-37); BILIRUBIN,TOTAL 0.2 MG/DL (0.2-1.0); CHOLESTEROL 223 MG/DL (< 200); HDL CHOLESTEROL 63 MG/DL (40-60); PHOSPHORUS 4.2 MG/DL (2.5-4.9); TRIGLYCERIDES 58 MG/DL (30-150)
--- NOTE | 2020-01-26 14:05 | Diagnostic Imaging Report ---
EXAM: CT Head Without Intravenous Contrast CLINICAL HISTORY: SLUR TECHNIQUE: Axial computed tomography images of the head/brain without intravenous contrast. CTDI is 53.4 mGy and DLP is 1045.5 mGy-cm. One or more of the following dose reduction techniques were used: automated exposure control, adjustment of the mA and/or kV according to patient size, use of iterative reconstruction technique. COMPARISON: CT head 07/12/19 FINDINGS: Brain: Mild chronic small vessel ischemic changes and volume loss. No hemorrhage. No edema. No mass effect or midline shift. No intra-or extra-axial fluid collections or masses. Ventricles: Unremarkable. No ventriculomegaly. Bones/joints: Unremarkable. No acute fracture. Soft tissues: Unremarkable. Sinuses: Unremarkable as visualized. No acute sinusitis. Mastoid air cells: Unremarkable as visualized. No mastoid effusion. IMPRESSION: No acute findings in the head/brain. No significant change from prior study.
[2020-01-26 16:00] VITALS: BP 116/70
--- NOTE | 2020-01-26 16:00 | NUR ---
ER DISCHARGE NOTE: Patient is cleared to be discharged per ERMD, pt is aox4, on room air, with stable vital signs. pt was given dc and prescription instructions, pt was able to verbalize understanding, pt id band and iv site removed without complications. pt is able to ambulate with steady gait. pt took all belongings.
[2020-01-26 16:36] LABS: APPEARANCE,URINE CLEAR; BILIRUBIN, URINE NEGATIVE (NEGATIVE); COLOR,URINE PALE YELLOW; GLUCOSE, URINE (UA) NEGATIVE (NEGATIVE); KETONES,URINE NEGATIVE (NEGATIVE); LEUKOCYTE ESTERASE ,URINE NEGATIVE (NEGATIVE); NITRITE,URINE NEGATIVE (NEGATIVE); PH,URINE 5 (4.5-8.0); PROTEIN,URINE NEGATIVE (NEGATIVE); UROBILINOGEN,URINE NORMAL MG/DL (0.0-1.0)
== END 2020-01-26 16:00 | disposition home or self-care (01) ==
LOC: EMR 13:20
DX: G45.9 Transient cerebral ischemic attack, unspecified (principal); Z86.73 Personal history of transient ischemic attack (TIA), and cerebral infarction without residual deficits
CPT/HCPCS: 36415; 70450; 80053; 80061; 80307; 81003; 83735; 84100; 84484; 85025; 85610; 85730; 93005; 99284; G0480